=== PATIENT | male | born 1950 | race Caucasian/White ===

== ENCOUNTER 2020-03-25 12:33 | Outpatient (CLI) | payer MEDICARE, MEDICAID | END 2020-03-25 12:34 | disposition critical access hospital (66) | LOC: EMS 12:33 | PROVIDERS: ATTEND Surgery | DX: R06.02 Shortness of breath (principal) | CPT/HCPCS: A0425; A0429 ==

== ENCOUNTER 2020-03-25 13:06 | Inpatient (IN) | payer MEDICARE, MEDICAID ==
--- NOTE | 2020-03-25 13:16 | ED Physician Documentation ---
History of Present Illness - Stated complaint Stated Complaint: SOA - History obtained from History obtained from: Patient, EMS - History of Present Illness Timing: Yesterday Pain level max: 0 Pain level now: 0 - Additonal information Additional information: 69 yo M visiting from out of town presents with increasing B LE edema and shortness of breath over the past 2 days. States ran out of oxygen as well this morning. normally on 2L at home. Initial O2 sats were 80% on room air at the walk in clinic. States 5lbs increased weight over the past week. States takes lasix 80mg daily. H/o CHF, CABG. No chest pain. No fever. No chills. No cough. Patient also reportedly has a history of renal insufficiency, creatinine baseline reportedly 1.9, but recently was elevated to 2.9. Also reportedly had a recent thrombocytopenia, 93. Copies of these labs are unavailable here. Review of Systems Ten Systems: 10 systems reviewed and negative Constitutional: denies: Fever, Chills Throat: denies: Sore throat Respiratory: denies: Cough Skin: denies: Rash Musculoskeletal: denies: Neck pain, Back pain Neurologic: denies: Headache PD PAST MEDICAL HISTORY - Past Medical History Past Medical History: Yes Cardiovascular: Congestive heart failure, Coronary artery disease - Past Surgical History Past Surgical History: Yes Cardiovascular: CABG - Present Medications Home Medications: Ambulatory Orders Medication Instructions Recorded Confirmed Aripiprazole [Abilify] 03/25/20 Aspirin [Aspirin EC] 03/25/20 Atorvastatin [Lipitor] 03/25/20 Furosemide [Lasix] 03/25/20 Gabapentin [Neurontin] 03/25/20 Insulin Lispro [Humalog] 03/25/20 03/25/20 carvediloL [Coreg] 03/25/20 - Allergies Allergies/Adverse Reactions: Allergies Allergy/AdvReac Type Severity Reaction Status Date / Time Penicillins Allergy Unknown Verified 03/25/20 13:21 Sulfa (Sulfonamide Allergy Unknown Verified 03/25/20 13:21 Antibiotics) PD ED PE NORMAL - Vitals Vital signs reviewed: Yes - General General: Alert and oriented X 3, No acute distress - HEENT HEENT: Moist mucous membranes - Neck Neck: Supple, no meningeal sign - Cardiac Cardiac: RRR, Strong equal pulses - Respiratory Respiratory: Other (Increased work of breathing, especially with movement, crackles bilateral) - Abdomen Abdomen: Soft, Non tender, Non distended - Derm Derm: Warm and dry - Extremities Extremities: Other (3+ bilateral lower extremity pitting edema. Mild erythema to the right lower extremity, multiple small scabs.) - Neuro Neuro: Alert and oriented X 3 - Psych Psych: Normal mood, Normal affect Results - Vitals Vitals: Vital Signs - 24 hr 03/25/20 03/25/20 13:12 15:13 Temperature 36.8 C 37.2 C Heart Rate 79 64 Respiratory 18 16 Rate Blood Pressure 139/63 H 146/68 H O2 Saturation 86 L 98 Oxygen O2 Source Nasal cannula Oxygen Flow Rate 3 - EKG (time done) 1320 Rate: Rate (enter#) (76) Rhythm: NSR [place]: Normal Intervals: Prolonged [place], Wide QRS Ischemia: Non specific changes Compare to prior EKG: Old EKG unavailable - Labs Labs: Laboratory Tests 03/25/20 03/25/20 03/25/20 14:08 14:08 14:08 WBC 6.8 RBC 3.03 L Hgb 8.9 L Hct 28.4 L MCV 93.7 MCH 29.4 MCHC 31.3 L RDW 14.5 Plt Count 162 MPV 11.1 Neut # (Auto) 5.1 Lymph # (Auto) 0.8 L Dickson # (Auto) 0.7 Eos # (Auto) 0.1 Baso # (Auto) 0.0 Absolute Nucleated RBC 0.00 Nucleated RBC % 0.0 Sodium 134 L Potassium 4.7 Chloride 106 Carbon Dioxide 19 L Anion Gap 9.0 BUN 73 H Creatinine 3.0 H Estimated GFR (MDRD) 21 L Glucose 163 H Calcium 8.3 L Total Bilirubin 0.7 AST 30 ALT 18 Alkaline Phosphatase 60 Troponin I High Sens B-Natriuretic Peptide 2871 H Total Protein 8.1 Albumin 3.0 L Globulin 5.1 H Albumin/Globulin Ratio 0.6 L Lipase 52 H 03/25/20 14:08 WBC RBC Hgb Hct MCV MCH MCHC RDW Plt Count MPV Neut # (Auto) Lymph # (Auto) Dickson # (Auto) Eos # (Auto) Baso # (Auto) Absolute Nucleated RBC Nucleated RBC % Sodium Potassium Chloride Carbon Dioxide Anion Gap BUN Creatinine Estimated GFR (MDRD) Glucose Calcium Total Bilirubin AST ALT Alkaline Phosphatase Troponin I High Sens 100.2 H* B-Natriuretic Peptide Total Protein Albumin Globulin Albumin/Globulin Ratio Lipase - Rads (name of study) Chest x-ray Radiology: Prelim report reviewed, EMP read contemporaneously, See rad report PD MEDICAL DECISION MAKING - ED course Complexity details: reviewed results, re-evaluated patient, considered differential, d/w patient, d/w senior solutions workflow consultant ED course: 69-year-old male presents to the emergency department with what appears to be worsening congestive heart failure. His normal oxygen requirement is 2 L, he is on 3 to 4 L at rest in the emergency department. He was given IV Lasix. Has chronic renal insufficiency. Mildly elevated high-sensitivity troponin, but likely secondary to his CHF exacerbation and pulmonary edema rather than true ACS. Discussed the case with Dr. Tineo, hospitalist who accepts This document was made in part using voice recognition software. While efforts are made to proofread this document, sound alike and grammatical errors may occur. Departure - Departure Disposition: 66 [facility] DC/Xfer Clinical Impression: Hypoxia Pulmonary edema Qualifiers: Chronicity: acute Qualified Code(s): J81.0 - Acute pulmonary edema Renal failure Qualifiers: Renal failure chronicity: acute on chronic Acute renal failure type: unspecified Chronic kidney disease stage: unspecified stage Qualified Code(s): N17.9 - Acute kidney failure, unspecified; N18.9 - Chronic kidney disease, unspecified Anemia Qualifiers: Anemia type: unspecified type Qualified Code(s): D64.9 - Anemia, unspecified CHF exacerbation Qualifiers: Heart failure type: unspecified Qualified Code(s): I50.9 - Heart failure, unspecified Condition: Stable
[2020-03-25] MEDS ORDERED: FUROSEMIDE 40 MG/4 ML VIAL IVP STA (13:27)
--- NOTE | 2020-03-25 13:37 | XRAY Report ---
PROCEDURE: Chest 1 View X-Ray INDICATIONS: Chest Pain TECHNIQUE: One view of the chest was acquired. COMPARISON: None FINDINGS: Surgical changes and devices: Median sternotomy wires and surgical clips are seen.. Lungs and pleura: No pleural effusions or pneumothorax. Extensive hazy opacities in bilateral mid to lower lung turner are seen concerning for pulmonary edema. Underlying infiltrates cannot be excluded . Mediastinum: Mediastinal contours appear normal. Heart size is enlarged. Bones and chest wall: No suspicious bony lesions. Overlying soft tissues appear unremarkable. IMPRESSION: Suggestion of CHF, cannot rule out underlying bilateral pulmonary infiltrates. No gross pneumothorax. Reviewed by: Tim Clay MD on 03/25/2020 1:35 PM PST Approved by: Tim Clay MD on 03/25/2020 1:35 PM PST Station ID: [id number]
[2020-03-25 14:37] LABS: ALBUMIN/GLOBULIN RATIO 0.6 (1.0-2.2); BILIRUBIN,TOTAL 0.7 mg/dL (0.2-1.0); CALCIUM 8.3 mg/dL (8.5-10.3); TOTAL PROTEIN 8.1 g/dL (6.7-8.2)
[2020-03-25 14:59] LABS: BASOPHILS % (AUTO) 0.4 %; EOSINOPHILS # (AUTO) 0.1 10^3/uL (0.0-0.7); EOSINOPHILS % (AUTO) 1.9 %; HGB - HEMOGLOBIN 8.9 g/dL (14.0-18.0); LYMPHOCYTES # (AUTO) 0.8 10^3/uL (1.5-3.5); LYMPHOCYTES % (AUTO) 11.7 %; MEAN CORPUSCULAR HEMOGLOBIN 29.4 pg (27.0-31.0); MEAN CORPUSCULAR HGB CONC 31.3 g/dL (32.0-36.0); MEAN CORPUSCULAR VOLUME 93.7 fL (80.0-94.0); MEAN PLATELET VOLUME 11.1 fL (7.4-11.4); MONOCYTES # (AUTO) 0.7 10^3/uL (0.0-1.0); MONOCYTES % (AUTO) 9.9 %; NEUTROPHILS # (AUTO) 5.1 10^3/uL (1.5-6.6); NEUTROPHILS % (AUTO) 75.5 %; PLT - PLATELET COUNT 162 10^3/uL (130-450); RED BLOOD COUNT 3.03 10^6/uL (4.70-6.10); RED CELL DISTRIBUTION WIDTH 14.5 % (12.0-15.0); WHITE BLOOD COUNT 6.8 x10^3/uL (4.8-10.8)
[2020-03-25 16:34] LABS: C. PNEUMONIAE- RESP PCR PANEL NOT DETECTED
[2020-03-25] MEDS ORDERED: ONDANSETRON 4 MG/2 ML VIAL IVP PRN (16:57)
[2020-03-25] MEDS ORDERED: ACETAMINOPHEN 325 MG TABLET PO PRN (16:57)
[2020-03-25] MEDS ORDERED: SODIUM CHLORIDE FLUSH 0.9% 10 ML SYRINGE IVP PRN (16:57)
--- NOTE | 2020-03-25 17:15 | HISTORY & PHYSICAL EXAMINATION ---
Chief Complaint - Chief Complaint Chief Complaint: shortness of breath History of Present Illness - Admitted From Admitted From:: ER - History Obtained From Records Reviewed: [facility] History obtained from: Pt - History of Present Illness HPI Comment/Other: This is a 69-yrs old male with a PMH significant for CHF, CAD, Diabetes, CKD who present ER complain of shortness of breath, increasing bilateral lower extremity edema. pt report he came from [facility] and in the holiday to visit his sister in [facility]. pt report he usually take 3 liter of O2 at home. In the recently two days, he feel more shortness of breath, increase of his bilateral leg edema. pt also report his weight increased in the recent couple of weeks. pt report he did not know he has kidney problem before. pt denies chest pain, fever, chill, nausea, vomiting, abdominal pain. Chest x-ray is suggestion of CHF. Lab test show pt has creatinine 3.0, BUN 73, BNP is 2871. pt also has elevated troponin at 100, repeated his Troponin is 111. EKG has sinus rhythm without ST segment variation. In ER, pt is afebile, pt has 86% sat on room air, then his O2 sat increased to 98% on 3 liter of O2. Discussed the care goal with the patient, patient request full code History - Past Medical History Cardiovascular: reports: Congestive heart failure, Coronary artery disease - Past Surgical History Cardiovascular: reports: CABG - Family & Social History Family History: Mother: , Father: Family History Comment/Other: Patient reported his father has diabetic and heavy smoker and at age 75. His mother also is a heavy smoke and at age 61 Social History Notes: Patient reported he never smoke, no alcohol or drug issue. Meds/Allgy - Home Medications Home Medications: Ambulatory Orders Medication Instructions Recorded Confirmed Aripiprazole [Abilify] 03/25/20 Aspirin [Aspirin EC] 03/25/20 Atorvastatin [Lipitor] 03/25/20 Furosemide [Lasix] 03/25/20 Gabapentin [Neurontin] 03/25/20 Insulin Lispro [Humalog] 03/25/20 03/25/20 carvediloL [Coreg] 03/25/20 - Allergies Allergies/Adverse Reactions: Allergies Allergy/AdvReac Type Severity Reaction Status Date / Time Penicillins Allergy Unknown Verified 03/25/20 13:21 Sulfa (Sulfonamide Allergy Unknown Verified 03/25/20 13:21 Antibiotics) Review of Systems - Constitutional Constitutional: denies: Fatigue, Fever, Chills, Weakness, Poor appetite - Eyes Eyes: denies: Pain, Blurred vision, Field loss, Vision loss - Ears, Nose & Throat Ears, Nose & Throat: denies: Ear pain, Vertigo, Nosebleeds, Bleeding gums - Cardiovascular Cariovascular: reports: Edema, Exertional dyspnea, Decr. exercise tolerance. denies: Irregular heart rate, Palpitations, Chest pain, Lightheadedness, Syncope - Respiratory Respiratory: reports: SOB with exertion. denies: Cough, Sputum production, Wheezing, Hemoptysis, Orthopnea, SOB at rest - Gastrointestinal Gastrointestinal: denies: Abdominal pain, Constipation, Diarrhea, Rectal bleeding, Black stools, Bloody stools, Nausea, Vomiting, John blood emesis, Coffee grounds emesis - Genitourinary Genitourinary: denies: Dysuria, Urgency - Musculoskeletal Musculoskeletal: denies: Muscle pain, Muscle aches, Limited range of motion, Muscle weakness - Integumentary Integumentary: denies: Rash, Lesions - Neurological Neurological: denies: General weakness, Focal weakness, Headache, Dizziness, Nu mbness, Abnormal gait, Seizures, Incoordination, Slurred speech - Psychiatric Psychiatric: denies: Depression, Suicidal, Delusions, Hallucinations - Endocrine Endocrine: denies: Polyuria, Polydypsia - Hematologic/Lymphatic Hematologic/Lymphatic: denies: Anemia, Blood clots Exam - Vital Signs Vital Signs: Vital Signs x48h Temp Pulse Resp BP Pulse Ox 03/25/20 16:46 64 21 153/76 H 97 03/25/20 15:13 37.2 C 64 16 146/68 H 98 03/25/20 13:12 36.8 C 79 18 139/63 H 86 L - Physical Exam General Appearance: positive: No acute distress, Alert. negative: Lethargic Eyes Bilateral: positive: Normal inspection, PERRL, No lid inflammation ENT: positive: ENT inspection nml, No signs of dehydration. negative: Purulent nasal drainage Neck: positive: Nml inspection, Thyroid nml, Trachea midline. negative: Thyromegaly, Tracheal deviation Respiratory: positive: Chest non-tender, No respiratory distress. negative: Wheezes, Rhonchi Cardiovascular: positive: Regular rate & rhythm, No murmur. negative: Tachycardia, Bradycardia, Systolic murmur Peripheral Pulses: positive: 2+ Abdomen: positive: Non-tender, Nml bowel sounds, No distention. negative: Tenderness, Guarding Back: positive: Nml inspection Skin: positive: Color nml, No rash, Warm, Dry. negative: Cyanosis, Diaphoresis, Pallor Extremities: positive: Non-tender, Nml appearance. negative: Calf tenderness Neurologic/Psychiatric: positive: Oriented x3, Motor nml, Sensation nml. negati ve: Weakness, Sensory loss, Facial droop, Slurred/abnml speech, Depressed mood/affect Sepsis Event Note (H) - Evaluation Current Stage of Sepsis: Ruled out Conclusion/Plan - Problem List (1) CHF exacerbation Conclusion/Plan: Patient has history of CHF, BNP is close to 3000 now, pt present shortness of breath, and Bilateral lower extremity edema, Chest chest x-ray show pulmonary congestion, suggestion acute on chronic CHF. order ECHO, IV of Lasix, tele monitor, lab monitor BNP, supplement of O2 as needed, continue home meds Coreg, daily weight, and low sodium diet. Qualifiers: Heart failure type: unspecified Qualified Code(s): I50.9 - Heart failure, unspecified (2) Elevated troponin Conclusion/Plan: pt denies any chest pain, repeated troponin is flat around 110. EKG reveals sinus rhythm without ST segment variation. it is more likely derived from combination of pt's worsening kidney function and demand cardiac stress from fluid overload. continue monitor Troponin, resume home Aspirin, and statin, tele and vital monitor, resume home Coreg, check ECHO. (3) Shortness of breath Conclusion/Plan: Patient reported shortness of breathing, patient had 86% of sats on room air. Patient usually take 2 L oxygen in the home. Patient has a history of CHF. Patient BNP is close to 3000, She also present bilateral lower extremity edema, Chest x-ray also suggestion CHF. Patient's SOB is likely caused by fluids overloaded secondary to pt's CHF. Patient was already given 40 mg intravenous Lasix in the ER Plan: continue IV of Lasix, monitor BNP, and BMP lab monitor, supplement of O2 as needed, adjust Lasix dosage as clinic presentation as needed. order ECHO (4) Bilateral lower extremity edema Conclusion/Plan: pt present Bilateral mild to moderate lower extremity edema acute on chronic. 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 It is likely secondarily to Fluids overloaded and worsening renal function. Patient deny pain, tenderness or erythema on the leg. There is some scratch in the right lower extremity because of his skin itchy. Plan: IV of lasix, PT/OT, lab monitor. (5) LAW (acute kidney injury) Conclusion/Plan: Patient reported usually creatinine is 1.9, today his creatinine 3.0. it is more likely secondary to worsening cardiac output and poor perfusion from acute on chronic CHF. we will continue Lasix diuretic, and lab monitor kidney function. (6) Diabetes Conclusion/Plan: Patient has history of diabetic, we will use sliding scale, check glucose level, had hypoglycemia protocol, and check A1C (7) Anemia Conclusion/Plan: pt has HGB 8.9 today. pt has hx of chronic CKD and CHF which could contribute to his anemia, will have anemia study, lab monitor with CBC. - Lab Results Fish Bones: 03/25/20 14:08 03/25/20 14:08 Core Measures - Anticipated LOS I expect patient to be DC'd or transferred within 96 hours.: Yes - DVT/VTE - Prophylaxis VTE/DVT Device ordered at admit?: Yes VTE/DVT Prophylaxis med ordered at admit?: Yes
[2020-03-25] MEDS: SODIUM CHLORIDE FLUSH 0.9% 10 ML SYRINGE IVP SCH (17:26)
[2020-03-25] MEDS ORDERED: LOSARTAN 50 MG TABLET PO SCH (18:39)
[2020-03-25] MEDS: carvediloL 3.125 MG TABLET PO SCH ×2 (18:47→21:00)
[2020-03-25 19:30] LABS: % IRON SATURATION 3 % (20-50); IRON 10 ug/dL (45-182); TOTAL IRON BINDING CAPACITY 316 ug/dL (250-450); TRANSFERRIN 226 mg/dL (180-329)
[2020-03-25 19:37] LABS: FERRITIN 273.4 ng/mL (23.9-336.2)
[2020-03-25] MEDS: HEPARIN 5,000 UNIT/ML VIAL SUBQ SCH (20:58)
[2020-03-25] MEDS ORDERED: FAMOTIDINE 20 MG TABLET PO SCH (21:00)
[2020-03-25] MEDS ORDERED: carvediloL 3.125 MG TABLET PO SCH (21:00)
[2020-03-25] MEDS ORDERED: ATORVASTATIN 40 MG TABLET PO SCH (21:00)
[2020-03-25] MEDS: GABAPENTIN 300 MG CAPSULE PO SCH (21:00)
[2020-03-25] MEDS: INSULIN ASPART 300 UNIT/3 ML PEN SUBQ SCH (21:03)
[2020-03-25 22:37] LABS: ABSOLUTE RETICS # AUTO 0.046 10^6/uL (0.020-0.110); RED BLOOD COUNT 2.79 10^6/uL (4.70-6.10)
[2020-03-26] MEDS: SODIUM CHLORIDE FLUSH 0.9% 10 ML SYRINGE IVP SCH ×3 (00:24→18:08)
[2020-03-26 05:24] LABS: BASOPHILS % (AUTO) 0.4 %; EOSINOPHILS # (AUTO) 0.4 10^3/uL (0.0-0.7); EOSINOPHILS % (AUTO) 7.5 %; HGB - HEMOGLOBIN 7.7 g/dL (14.0-18.0); LYMPHOCYTES # (AUTO) 1.2 10^3/uL (1.5-3.5); LYMPHOCYTES % (AUTO) 20.7 %; MEAN CORPUSCULAR HEMOGLOBIN 28.8 pg (27.0-31.0); MEAN CORPUSCULAR HGB CONC 30.4 g/dL (32.0-36.0); MEAN CORPUSCULAR VOLUME 94.8 fL (80.0-94.0); MEAN PLATELET VOLUME 10.8 fL (7.4-11.4); MONOCYTES # (AUTO) 0.5 10^3/uL (0.0-1.0); MONOCYTES % (AUTO) 9.5 %; NEUTROPHILS # (AUTO) 3.5 10^3/uL (1.5-6.6); NEUTROPHILS % (AUTO) 61.5 %; PLT - PLATELET COUNT 142 10^3/uL (130-450); RED BLOOD COUNT 2.67 10^6/uL (4.70-6.10); RED CELL DISTRIBUTION WIDTH 14.6 % (12.0-15.0); WHITE BLOOD COUNT 5.7 x10^3/uL (4.8-10.8)
[2020-03-26 05:37] LABS: CALCIUM 8.2 mg/dL (8.5-10.3); CREATININE 3.1 mg/dL (0.6-1.2); MAGNESIUM 1.5 mg/dL (1.7-2.8); PHOSPHORUS 4.2 mg/dL (2.5-4.6)
[2020-03-26] MEDS ORDERED: FUROSEMIDE 40 MG/4 ML VIAL IVP SCH ×2 (06:00→09:00)
[2020-03-26] MEDS ORDERED: MAGNESIUM SULFATE 2 GRAM 2 GM/50 ML BAG IV ONE (07:11)
[2020-03-26 07:40] LABS: HEMOGLOBIN A1c% 8.4 % (4.27-6.07)
[2020-03-26] MEDS: INSULIN ASPART 300 UNIT/3 ML PEN SUBQ SCH ×4 (08:21→20:40)
[2020-03-26] MEDS ORDERED: FAMOTIDINE 20 MG TABLET PO SCH (09:00)
[2020-03-26] MEDS ORDERED: ASPIRIN CHEW 81 MG TABLET PO SCH (09:00)
[2020-03-26] MEDS: carvediloL 3.125 MG TABLET PO SCH ×2 (09:01→20:42)
[2020-03-26] MEDS: HEPARIN 5,000 UNIT/ML VIAL SUBQ SCH ×2 (09:22→20:40)
--- NOTE | 2020-03-26 09:25 | PROVIDER PROGRESS NOTE ---
Subjective - Prog Note Date Prog Note Date: 03/26/20 - Subjective Subjective: He reports feeling improved compared to yesterday but still feels short of breath at times. He denies any chest pain. He reports his lower extremity edema is slightly improved. He does not believe he has ever required a blood transfusion before. He denies any blood in his stool or evidence of bleeding. Current Medications - Current Medications Current Medications: Active Medications Acetaminophen (Tylenol) 650 mg PO Q4HR PRN PRN Reason: Pain 1 to 4 Aspirin ([facility] Hemanth Aspirin) 81 mg PO DAILY [facility] Last Admin: 03/26/20 09:00 Dose: 81 mg Documented by: Atorvastatin Calcium (Lipitor) 20 mg PO QPM [facility] Last Admin: 03/25/20 21:00 Dose: 20 mg Documented by: Carvedilol (Coreg) 3.125 mg PO BID [facility] Last Admin: 03/26/20 09:01 Dose: 3.125 mg Documented by: Famotidine (Pepcid) 20 mg PO DAILY [facility] Last Admin: 03/26/20 09:01 Dose: 20 mg Documented by: Furosemide (Lasix Inj 40 Mg Vial) 40 mg IVP BIDDIURETIC [facility] Gabapentin (Neurontin) 300 mg PO QPM [facility] Last Admin: 03/25/20 21:00 Dose: 300 mg Documented by: Heparin Sodium (Porcine) () 5,000 unit SUBQ BID [facility] Last Admin: 03/25/20 20:58 Dose: 5,000 unit Documented by: Insulin Aspart (Novolog) 1 - 9 unit SUBQ 0800,1200,1700,2100 [facility]; Protocol Last Admin: 03/26/20 08:21 Dose: Not Given Documented by: Ondansetron HCl (Zofran Inj) 4 mg IVP Q6HR PRN PRN Reason: Nausea / Vomiting Sodium Chloride (Normal Saline Flush 0.9%) 10 ml IVP PRN PRN PRN Reason: NEEDED PER PROVIDER ORDERS Sodium Chloride (Normal Saline Flush 0.9%) 10 ml IVP 0100,0900,1700 [facility] Last Admin: 03/26/20 00:24 Dose: 10 ml Documented by: Aripiprazole [Abilify] 03/25/20 Aspirin [Aspirin EC] 03/25/20 Atorvastatin [Lipitor] 03/25/20 Furosemide [Lasix] 40 mg PO BIDDIURETIC 03/25/20 Gabapentin [Neurontin] 03/25/20 Insulin Lispro [Humalog] 03/25/20 carvediloL [Coreg] 03/25/20 amLODIPine [Norvasc] 5 mg PO DAILY 03/26/20 Objective - Vital Signs/Intake & Output Reviewed Vital Signs: Yes Vital Signs: Vital Signs x48h Temp Pulse Pulse Resp BP Pulse Ox 03/26/20 08:34 37.2 C 61 20 149/71 H 97 03/26/20 05:04 37.2 C 58 L 22 96 03/26/20 03:35 37.2 C 58 L 22 122/57 L 96 Intake & Output: Intake & Output 03/23/20 03/24/20 03/25/20 03/26/20 23:59 23:59 23:59 23:59 Intake Total 400 840 Output Total 750 325 Balance -350 515 - Objective General Appearance: positive: Alert, Mild distress Eyes Bilateral: positive: Other (Left eye anopia.) ENT: positive: ENT inspection nml, Other (Nasal cannula in place.) Neck: positive: Nml inspection Respiratory: positive: Rales, Other (He is nondistressed but still appears quite tachypneic at rest. He is able to speak in short sentences but does catch his breath at times.). negative: Wheezes Cardiovascular: positive: Regular rate & rhythm. negative: Tachycardia, Systolic murmur Abdomen: positive: Non-tender, No distention, Other (Umbilical hernia noted.). negative: Tenderness Skin: positive: Warm, Dry Extremities: positive: Pedal edema (He has about +2 pitting edema in bilateral lower extremities.) Neurologic/Psychiatric: negative: Disoriented to person, Disoriented to place - Lab Results Fish Bones: 03/26/20 05:16 03/26/20 05:16 Other Labs: Lab Results x24hrs 03/26/20 03/26/20 03/26/20 Range/Units 07:38 07:27 05:16 WBC (4.8-10.8) x10^3/uL RBC (4.70-6.10) 10^6/uL Hgb (14.0-18.0) g/dL Hct (42.0-52.0) % MCV (80.0-94.0) fL MCH (27.0-31.0) pg MCHC (32.0-36.0) g/dL RDW (12.0-15.0) % Plt Count (130-450) 10^3/uL MPV (7.4-11.4) fL Reticulocyte % (Auto) (0.5-2.3) % Neut # (Auto) (1.5-6.6) 10^3/uL Lymph # (Auto) (1.5-3.5) 10^3/uL [place] # (Auto) (0.0-1.0) 10^3/uL Eos # (Auto) (0.0-0.7) 10^3/uL Baso # (Auto) (0.0-0.1) 10^3/uL Absolute Nucleated RBC x10^3/uL Nucleated RBC % /100WBC Absolute Retic (0.020-0.110) 10^6/uL Sodium (135-145) mmol/L Potassium (3.5-5.0) mmol/L Chloride (101-111) mmol/L Carbon Dioxide (21-32) mmol/L Anion Gap (6-13) BUN (6-20) mg/dL Creatinine (0.6-1.2) mg/dL Estimated GFR (MDRD) (>89) Glucose (70-100) mg/dL POC Whole Bld Glucose 110 H (70 - 100) mg/dL Estimat Average Glucose (70-100) mg/dL Hemoglobin A1c % (4.27-6.07) % Calcium (8.5-10.3) mg/dL Phosphorus (2.5-4.6) mg/dL Magnesium (1.7-2.8) mg/dL Iron (45-182) ug/dL TIBC (250-450) ug/dL % Saturation (20-50) % Transferrin (180-329) mg/dL Ferritin (23.9-336.2) ng/mL Total Bilirubin (0.2-1.0) mg/dL AST (10-42) IU/L ALT (10-60) IU/L Alkaline Phosphatase (42-121) IU/L Lactate Dehydrogenase (91-225) IU/L Troponin I High Sens (2.3-19.7) ng/L B-Natriuretic Peptide (5-100) pg/mL Total Protein (6.7-8.2) g/dL Albumin (3.2-5.5) g/dL Globulin (2.1-4.2) g/dL Albumin/Globulin Ratio (1.0-2.2) Lipase (22-51) U/L Vitamin B12 (180-914) pg/mL Nasal Adenovirus (PCR) Nasal B. parapertussis DNA (PCR) Nasal Coronavir 229E PCR Nasal Coronavir HKU1 PCR Nasal Coronavir NL63 PCR Nasal Coronavir OC43 PCR Nasal Enterovir/Rhinovir PCR Nasal Influenza B PCR Nasal Influenza A PCR Nasal Parainfluen 1 PCR Nasal Parainfluen 2 PCR Nasal Parainfluen 3 PCR Nasal Parainfluen 4 PCR Nasal RSV (PCR) Nasal B.pertussis DNA PCR Nasal C.pneumoniae (PCR) [place] Human Metapneumo PCR Nasal M.pneumoniae (PCR) Nasal SARS-CoV-2 (PCR) Blood Type A POSITIVE Blood Type Recheck A POSITIVE Antibody Screen NEGATIVE Crossmatch IS Only See Detail 03/26/20 03/26/20 03/26/20 Range/Units 05:16 05:16 05:16 WBC (4.8-10.8) x10^3/uL RBC (4.70-6.10) 10^6/uL Hgb (14.0-18.0) g/dL Hct (42.0-52.0) % MCV (80.0-94.0) fL MCH (27.0-31.0) pg MCHC (32.0-36.0) g/dL RDW (12.0-15.0) % Plt Count (130-450) 10^3/uL MPV (7.4-11.4) fL Reticulocyte % (Auto) (0.5-2.3) % Neut # (Auto) (1.5-6.6) 10^3/uL Lymph # (Auto) (1.5-3.5) 10^3/uL [place] # (Auto) (0.0-1.0) 10^3/uL Eos # (Auto) (0.0-0.7) 10^3/uL Baso # (Auto) (0.0-0.1) 10^3/uL Absolute Nucleated RBC x10^3/uL Nucleated RBC % /100WBC Absolute Retic (0.020-0.110) 10^6/uL Sodium 134 L (135-145) mmol/L Potassium 4.5 (3.5-5.0) mmol/L Chloride 104 (101-111) mmol/L Carbon Dioxide 20 L (21-32) mmol/L Anion Gap 10.0 (6-13) BUN 70 H (6-20) mg/dL Creatinine 3.1 H (0.6-1.2) mg/dL Estimated GFR (MDRD) 20 L (>89) Glucose 117 H (70-100) mg/dL POC Whole Bld Glucose (70 - 100) mg/dL Estimat Average Glucose 194 H (70-100) mg/dL Hemoglobin A1c % 8.4 H (4.27-6.07) % Calcium 8.2 L (8.5-10.3) mg/dL Phosphorus 4.2 (2.5-4.6) mg/dL Magnesium 1.5 L (1.7-2.8) mg/dL Iron (45-182) ug/dL TIBC (250-450) ug/dL % Saturation (20-50) % Transferrin (180-329) mg/dL Ferritin (23.9-336.2) ng/mL Total Bilirubin (0.2-1.0) mg/dL AST (10-42) IU/L ALT (10-60) IU/L Alkaline Phosphatase (42-121) IU/L Lactate Dehydrogenase (91-225) IU/L Troponin I High Sens (2.3-19.7) ng/L B-Natriuretic Peptide 1944 H (5-100) pg/mL Total Protein (6.7-8.2) g/dL Albumin (3.2-5.5) g/dL Globulin (2.1-4.2) g/dL Albumin/Globulin Ratio (1.0-2.2) Lipase (22-51) U/L Vitamin B12 (180-914) pg/mL Nasal Adenovirus (PCR) Nasal B. parapertussis DNA (PCR) Nasal Coronavir 229E PCR Nasal Coronavir HKU1 PCR Nasal Coronavir NL63 PCR Nasal Coronavir OC43 PCR Nasal Enterovir/Rhinovir PCR Nasal Influenza B PCR Nasal Influenza A PCR Nasal Parainfluen 1 PCR Nasal Parainfluen 2 PCR Nasal Parainfluen 3 PCR Nasal Parainfluen 4 PCR Nasal RSV (PCR) Nasal B.pertussis DNA PCR Nasal C.pneumoniae (PCR) [place] Human Metapneumo PCR Nasal M.pneumoniae (PCR) Nasal SARS-CoV-2 (PCR) Blood Type Blood Type Recheck Antibody Screen Crossmatch IS Only 03/26/20 03/25/20 03/25/20 Range/Units 05:16 22:26 22:26 WBC 5.7 (4.8-10.8) x10^3/uL RBC 2.67 L 2.79 L (4.70-6.10) 10^6/uL Hgb 7.7 L (14.0-18.0) g/dL Hct 25.3 L (42.0-52.0) % MCV 94.8 H (80.0-94.0) fL MCH 28.8 (27.0-31.0) pg MCHC 30.4 L (32.0-36.0) g/dL RDW 14.6 (12.0-15.0) % Plt Count 142 (130-450) 10^3/uL MPV 10.8 (7.4-11.4) fL Reticulocyte % (Auto) 1.64 (0.5-2.3) % Neut # (Auto) 3.5 (1.5-6.6) 10^3/uL Lymph # (Auto) 1.2 L (1.5-3.5) 10^3/uL [place] # (Auto) 0.5 (0.0-1.0) 10^3/uL Eos # (Auto) 0.4 (0.0-0.7) 10^3/uL Baso # (Auto) 0.0 (0.0-0.1) 10^3/uL Absolute Nucleated RBC 0.00 x10^3/uL Nucleated RBC % 0.0 /100WBC Absolute Retic 0.046 (0.020-0.110) 10^6/uL Sodium (135-145) mmol/L Potassium (3.5-5.0) mmol/L Chloride (101-111) mmol/L Carbon Dioxide (21-32) mmol/L Anion Gap (6-13) BUN (6-20) mg/dL Creatinine (0.6-1.2) mg/dL Estimated GFR (MDRD) (>89) Glucose (70-100) mg/dL POC Whole Bld Glucose (70 - 100) mg/dL Estimat Average Glucose (70-100) mg/dL Hemoglobin A1c % (4.27-6.07) % Calcium (8.5-10.3) mg/dL Phosphorus (2.5-4.6) mg/dL Magnesium (1.7-2.8) mg/dL Iron (45-182) ug/dL TIBC (250-450) ug/dL % Saturation (20-50) % Transferrin (180-329) mg/dL Ferritin (23.9-336.2) ng/mL Total Bilirubin (0.2-1.0) mg/dL AST (10-42) IU/L ALT (10-60) IU/L Alkaline Phosphatase (42-121) IU/L Lactate Dehydrogenase (91-225) IU/L Troponin I High Sens 105.1 H* (2.3-19.7) ng/L B-Natriuretic Peptide (5-100) pg/mL Total Protein (6.7-8.2) g/dL Albumin (3.2-5.5) g/dL Globulin (2.1-4.2) g/dL Albumin/Globulin Ratio (1.0-2.2) Lipase (22-51) U/L Vitamin B12 (180-914) pg/mL Nasal Adenovirus (PCR) Nasal B. parapertussis DNA (PCR) Nasal Coronavir 229E PCR Nasal Coronavir HKU1 PCR Nasal Coronavir NL63 PCR Nasal Coronavir OC43 PCR Nasal Enterovir/Rhinovir PCR Nasal Influenza B PCR Nasal Influenza A PCR Nasal Parainfluen 1 PCR Nasal Parainfluen 2 PCR Nasal Parainfluen 3 PCR Nasal Parainfluen 4 PCR Nasal RSV (PCR) Nasal B.pertussis DNA PCR Nasal C.pneumoniae (PCR) [place] Human Metapneumo PCR Nasal M.pneumoniae (PCR) Nasal SARS-CoV-2 (PCR) Blood Type Blood Type Recheck Antibody Screen Crossmatch IS Only 03/25/20 03/25/20 03/25/20 Range/Units 20:56 18:07 16:22 WBC (4.8-10.8) x10^3/uL RBC (4.70-6.10) 10^6/uL Hgb (14.0-18.0) g/dL Hct (42.0-52.0) % MCV (80.0-94.0) fL MCH (27.0-31.0) pg MCHC (32.0-36.0) g/dL RDW (12.0-15.0) % Plt Count (130-450) 10^3/uL MPV (7.4-11.4) fL Reticulocyte % (Auto) (0.5-2.3) % Neut # (Auto) (1.5-6.6) 10^3/uL Lymph # (Auto) (1.5-3.5) 10^3/uL [place] # (Auto) (0.0-1.0) 10^3/uL Eos # (Auto) (0.0-0.7) 10^3/uL Baso # (Auto) (0.0-0.1) 10^3/uL Absolute Nucleated RBC x10^3/uL Nucleated RBC % /100WBC Absolute Retic (0.020-0.110) 10^6/uL Sodium (135-145) mmol/L Potassium (3.5-5.0) mmol/L Chloride (101-111) mmol/L Carbon Dioxide (21-32) mmol/L Anion Gap (6-13) BUN (6-20) mg/dL Creatinine (0.6-1.2) mg/dL Estimated GFR (MDRD) (>89) Glucose (70-100) mg/dL POC Whole Bld Glucose 172 H 120 H (70 - 100) mg/dL Estimat Average Glucose (70-100) mg/dL Hemoglobin A1c % (4.27-6.07) % Calcium (8.5-10.3) mg/dL Phosphorus (2.5-4.6) mg/dL Magnesium (1.7-2.8) mg/dL Iron (45-182) ug/dL TIBC (250-450) ug/dL % Saturation (20-50) % Transferrin (180-329) mg/dL Ferritin (23.9-336.2) ng/mL Total Bilirubin (0.2-1.0) mg/dL AST (10-42) IU/L ALT (10-60) IU/L Alkaline Phosphatase (42-121) IU/L Lactate Dehydrogenase 263 H (91-225) IU/L Troponin I High Sens (2.3-19.7) ng/L B-Natriuretic Peptide (5-100) pg/mL Total Protein (6.7-8.2) g/dL Albumin (3.2-5.5) g/dL Globulin (2.1-4.2) g/dL Albumin/Globulin Ratio (1.0-2.2) Lipase (22-51) U/L Vitamin B12 (180-914) pg/mL Nasal Adenovirus (PCR) Nasal B. parapertussis DNA (PCR) Nasal Coronavir 229E PCR Nasal Coronavir HKU1 PCR Nasal Coronavir NL63 PCR Nasal Coronavir OC43 PCR Nasal Enterovir/Rhinovir PCR Nasal Influenza B PCR Nasal Influenza A PCR Nasal Parainfluen 1 PCR Nasal Parainfluen 2 PCR Nasal Parainfluen 3 PCR Nasal Parainfluen 4 PCR Nasal RSV (PCR) Nasal B.pertussis DNA PCR Nasal C.pneumoniae (PCR) [place] Human Metapneumo PCR Nasal M.pneumoniae (PCR) Nasal SARS-CoV-2 (PCR) Blood Type Blood Type Recheck Antibody Screen Crossmatch IS Only 03/25/20 03/25/20 03/25/20 Range/Units 16:22 16:22 16:22 WBC (4.8-10.8) x10^3/uL RBC (4.70-6.10) 10^6/uL Hgb (14.0-18.0) g/dL Hct (42.0-52.0) % MCV (80.0-94.0) fL MCH (27.0-31.0) pg MCHC (32.0-36.0) g/dL RDW (12.0-15.0) % Plt Count (130-450) 10^3/uL MPV (7.4-11.4) fL Reticulocyte % (Auto) (0.5-2.3) % Neut # (Auto) (1.5-6.6) 10^3/uL Lymph # (Auto) (1.5-3.5) 10^3/uL [place] # (Auto) (0.0-1.0) 10^3/uL Eos # (Auto) (0.0-0.7) 10^3/uL Baso # (Auto) (0.0-0.1) 10^3/uL Absolute Nucleated RBC x10^3/uL Nucleated RBC % /100WBC Absolute Retic (0.020-0.110) 10^6/uL Sodium (135-145) mmol/L Potassium (3.5-5.0) mmol/L Chloride (101-111) mmol/L Carbon Dioxide (21-32) mmol/L Anion Gap (6-13) BUN (6-20) mg/dL Creatinine (0.6-1.2) mg/dL Estimated GFR (MDRD) (>89) Glucose (70-100) mg/dL POC Whole Bld Glucose (70 - 100) mg/dL Estimat Average Glucose (70-100) mg/dL Hemoglobin A1c % (4.27-6.07) % Calcium (8.5-10.3) mg/dL Phosphorus (2.5-4.6) mg/dL Magnesium (1.7-2.8) mg/dL Iron 10 L (45-182) ug/dL TIBC 316 (250-450) ug/dL % Saturation 3 L (20-50) % Transferrin 226 (180-329) mg/dL Ferritin 273.4 (23.9-336.2) ng/mL Total Bilirubin (0.2-1.0) mg/dL AST (10-42) IU/L ALT (10-60) IU/L Alkaline Phosphatase (42-121) IU/L Lactate Dehydrogenase (91-225) IU/L Troponin I High Sens 111.5 H* (2.3-19.7) ng/L B-Natriuretic Peptide (5-100) pg/mL Total Protein (6.7-8.2) g/dL Albumin (3.2-5.5) g/dL Globulin (2.1-4.2) g/dL Albumin/Globulin Ratio (1.0-2.2) Lipase (22-51) U/L Vitamin B12 357 (180-914) pg/mL Nasal Adenovirus (PCR) Nasal B. parapertussis DNA (PCR) Nasal Coronavir 229E PCR Nasal Coronavir HKU1 PCR Nasal Coronavir NL63 PCR Nasal Coronavir OC43 PCR Nasal Enterovir/Rhinovir PCR Nasal Influenza B PCR Nasal Influenza A PCR Nasal Parainfluen 1 PCR Nasal Parainfluen 2 PCR Nasal Parainfluen 3 PCR Nasal Parainfluen 4 PCR Nasal RSV (PCR) Nasal B.pertussis DNA PCR Nasal C.pneumoniae (PCR) [place] Human Metapneumo PCR Nasal M.pneumoniae (PCR) Nasal SARS-CoV-2 (PCR) Blood Type Blood Type Recheck Antibody Screen Crossmatch IS Only 03/25/20 03/25/20 03/25/20 Range/Units 15:38 14:08 14:08 WBC (4.8-10.8) x10^3/uL RBC (4.70-6.10) 10^6/uL Hgb (14.0-18.0) g/dL Hct (42.0-52.0) % MCV (80.0-94.0) fL MCH (27.0-31.0) pg MCHC (32.0-36.0) g/dL RDW (12.0-15.0) % Plt Count (130-450) 10^3/uL MPV (7.4-11.4) fL Reticulocyte % (Auto) (0.5-2.3) % Neut # (Auto) (1.5-6.6) 10^3/uL Lymph # (Auto) (1.5-3.5) 10^3/uL [place] # (Auto) (0.0-1.0) 10^3/uL Eos # (Auto) (0.0-0.7) 10^3/uL Baso # (Auto) (0.0-0.1) 10^3/uL Absolute Nucleated RBC x10^3/uL Nucleated RBC % /100WBC Absolute Retic (0.020-0.110) 10^6/uL Sodium 134 L (135-145) mmol/L Potassium 4.7 (3.5-5.0) mmol/L Chloride 106 (101-111) mmol/L Carbon Dioxide 19 L (21-32) mmol/L Anion Gap 9.0 (6-13) BUN 73 H (6-20) mg/dL Creatinine 3.0 H (0.6-1.2) mg/dL Estimated GFR (MDRD) 21 L (>89) Glucose 163 H (70-100) mg/dL POC Whole Bld Glucose (70 - 100) mg/dL Estimat Average Glucose (70-100) mg/dL Hemoglobin A1c % (4.27-6.07) % Calcium 8.3 L (8.5-10.3) mg/dL Phosphorus (2.5-4.6) mg/dL Magnesium (1.7-2.8) mg/dL Iron (45-182) ug/dL TIBC (250-450) ug/dL % Saturation (20-50) % Transferrin (180-329) mg/dL Ferritin (23.9-336.2) ng/mL Total Bilirubin 0.7 (0.2-1.0) mg/dL AST 30 (10-42) IU/L ALT 18 (10-60) IU/L Alkaline Phosphatase 60 (42-121) IU/L Lactate Dehydrogenase (91-225) IU/L Troponin I High Sens 100.2 H* (2.3-19.7) ng/L B-Natriuretic Peptide (5-100) pg/mL Total Protein 8.1 (6.7-8.2) g/dL Albumin 3.0 L (3.2-5.5) g/dL Globulin 5.1 H (2.1-4.2) g/dL Albumin/Globulin Ratio 0.6 L (1.0-2.2) Lipase 52 H (22-51) U/L Vitamin B12 (180-914) pg/mL Nasal Adenovirus (PCR) NOT DETECTED Nasal B. parapertussis DNA (PCR) NOT DETECTED Nasal Coronavir 229E PCR NOT DETECTED Nasal Coronavir HKU1 PCR NOT DETECTED Nasal Coronavir NL63 PCR NOT DETECTED Nasal Coronavir OC43 PCR NOT DETECTED Nasal Enterovir/Rhinovir PCR NOT DETECTED Nasal Influenza B PCR NOT DETECTED Nasal Influenza A PCR NOT DETECTED Nasal Parainfluen 1 PCR NOT DETECTED Nasal Parainfluen 2 PCR NOT DETECTED Nasal Parainfluen 3 PCR NOT DETECTED Nasal Parainfluen 4 PCR NOT DETECTED Nasal RSV (PCR) NOT DETECTED Nasal B.pertussis DNA PCR NOT DETECTED Nasal C.pneumoniae (PCR) NOT DETECTED [place] Human Metapneumo PCR NOT DETECTED Nasal M.pneumoniae (PCR) NOT DETECTED Nasal SARS-CoV-2 (PCR) NOT DETECTED Blood Type Blood Type Recheck Antibody Screen Crossmatch IS Only 03/25/20 03/25/20 Range/Units 14:08 14:08 WBC 6.8 (4.8-10.8) x10^3/uL RBC 3.03 L (4.70-6.10) 10^6/uL Hgb 8.9 L (14.0-18.0) g/dL Hct 28.4 L (42.0-52.0) % MCV 93.7 (80.0-94.0) fL MCH 29.4 (27.0-31.0) pg MCHC 31.3 L (32.0-36.0) g/dL RDW 14.5 (12.0-15.0) % Plt Count 162 (130-450) 10^3/uL MPV 11.1 (7.4-11.4) fL Reticulocyte % (Auto) (0.5-2.3) % Neut # (Auto) 5.1 (1.5-6.6) 10^3/uL Lymph # (Auto) 0.8 L (1.5-3.5) 10^3/uL [place] # (Auto) 0.7 (0.0-1.0) 10^3/uL Eos # (Auto) 0.1 (0.0-0.7) 10^3/uL Baso # (Auto) 0.0 (0.0-0.1) 10^3/uL Absolute Nucleated RBC 0.00 x10^3/uL Nucleated RBC % 0.0 /100WBC Absolute Retic (0.020-0.110) 10^6/uL Sodium (135-145) mmol/L Potassium (3.5-5.0) mmol/L Chloride (101-111) mmol/L Carbon Dioxide (21-32) mmol/L Anion Gap (6-13) BUN (6-20) mg/dL Creatinine (0.6-1.2) mg/dL Estimated GFR (MDRD) (>89) Glucose (70-100) mg/dL POC Whole Bld Glucose (70 - 100) mg/dL Estimat Average Glucose (70-100) mg/dL Hemoglobin A1c % (4.27-6.07) % Calcium (8.5-10.3) mg/dL Phosphorus (2.5-4.6) mg/dL Magnesium (1.7-2.8) mg/dL Iron (45-182) ug/dL TIBC (250-450) ug/dL % Saturation (20-50) % Transferrin (180-329) mg/dL Ferritin (23.9-336.2) ng/mL Total Bilirubin (0.2-1.0) mg/dL AST (10-42) IU/L ALT (10-60) IU/L Alkaline Phosphatase (42-121) IU/L Lactate Dehydrogenase (91-225) IU/L Troponin I High Sens (2.3-19.7) ng/L B-Natriuretic Peptide 2871 H (5-100) pg/mL Total Protein (6.7-8.2) g/dL Albumin (3.2-5.5) g/dL Globulin (2.1-4.2) g/dL Albumin/Globulin Ratio (1.0-2.2) Lipase (22-51) U/L Vitamin B12 (180-914) pg/mL Nasal Adenovirus (PCR) Nasal B. parapertussis DNA (PCR) Nasal Coronavir 229E PCR Nasal Coronavir HKU1 PCR Nasal Coronavir NL63 PCR Nasal Coronavir OC43 PCR Nasal Enterovir/Rhinovir PCR Nasal Influenza B PCR Nasal Influenza A PCR Nasal Parainfluen 1 PCR Nasal Parainfluen 2 PCR Nasal Parainfluen 3 PCR Nasal Parainfluen 4 PCR Nasal RSV (PCR) Nasal B.pertussis DNA PCR Nasal C.pneumoniae (PCR) [place] Human Metapneumo PCR Nasal M.pneumoniae (PCR) Nasal SARS-CoV-2 (PCR) Blood Type Blood Type Recheck Antibody Screen Crossmatch IS Only Sepsis Event Note (H) - Evaluation Current Stage of Sepsis: Ruled out Assessment/Plan - Problem List (1) CHF exacerbation Impression: The etiology of his heart failure is not clear I do not have a prior echocardiogram and this is not available to us over the weekend. I am attempting to obtain records from his primary care provider. Clearly he is in acute heart failure as his BNP was nearly 3000 and his chest x-ray was consi stent with pulmonary vascular congestion. His weight has decreased today and his BNP has decreased but he still dyspneic at rest. We will continue to ice him with IV Lasix 60 mg daily. Trend BNP. Daily weights. Strict I's and O's. If he remains hospitalized until Saturday, will obtain echocardiogram then. We will follow up with his primary care provider to obtain records. Qualifiers: Heart failure type: unspecified Qualified Code(s): I50.9 - Heart failure, unspecified (2) Acute kidney injury superimposed on CKD Impression: His creatinine was elevated at 3.0 on admission and increased to 3.1 today. Reportedly, his baseline is 1.9 although I do not have labs available to me. This is presumed to be prerenal injury due to cardiorenal syndrome from the heart failure. We will continue to diurese him with IV Lasix given the heart failure. We will repeat his renal function this afternoon and monitor daily. We will obtain a renal ultrasound. We will also check urine electrolytes. We will attempt to obtain records and his primary care provider so that we can truly state that this is acute kidney injury and not chronic kidney disease as if his renal function worsens, he may need transfer to higher level of care. (3) Anemia Impression: This anemia is likely multifactorial secondary to his chronic kidney disease. He reports no evidence of bleeding at home. Iron studies are suggestive of possibly a component of iron deficiency anemia. We will transfuse 1 unit of packed red blood cell today given his hemoglobin decreased 7.7 and he is a history of coronary artery disease and his troponin is elevated at greater than 100. Goal hemoglobin is greater than 8. We will check his stool for occult bleeding. Recheck hemoglobin post transfusion. Qualifiers: Anemia type: unspecified type Qualified Code(s): D64.9 - Anemia, unspecified (4) Chronic respiratory failure with hypoxia Impression: He is on 3 L of oxygen at baseline due to what is believed to be his heart failure. He has no reported history of COPD. He is currently on his baseline oxygen requirements. Although he is not hypoxic compared to baseline, he still appears quite dyspneic and we will continue to diurese him for his heart failure. (5) Coronary artery disease Impression: He has a history of coronary artery disease. His troponin was elevated at greater than 100 but this is stable. His EKG did not suggest ischemia. This is likely demand ischemia due to the heart failure. We will continue his home aspirin, statin, beta-sadie. (6) Insulin dependent diabetes mellitus Impression: He has known insulin-dependent diabetes and his A1c is 8.4%. We will continue him on his current insulin regimen given his blood glucose is well controlled. Carb controlled diet.
[2020-03-26] MEDS ORDERED: FUROSEMIDE 20 MG/2 ML VIAL IVP ONE (10:00)
--- NOTE | 2020-03-26 11:25 | PHARMACY PROGRESS NOTE ---
- Best Possible Medication History Admit Date and Time: 03/25/20 2449 Processed by: Pharmacy Medication History completed: Yes Patient Interview: Completed Secondary Source(s): Pharmacy records, Insurance records (PT HAS A SPORATIC PRESCRIPTION FILL HISTORY, SUGGESTING POOR COMPLIANCE) As the person ultimately responsible for medication therapy, providers are able to order a medication from an existing home medication list in [facility] via the "Reconcile Routine" prior to Confirmation of that medication by support services tech. Such practice is discouraged except when the physician, in their clinical judgment, deems that a medical need exists for a medication without regard to previous use.
[2020-03-26] MEDS: hydrALAZINE 25 MG TABLET PO SCH ×2 (14:11→21:33)
--- NOTE | 2020-03-26 14:17 | Ultrasound Report ---
PROCEDURE: Retroperitoneal INDICATIONS: Acute kidney injury. TECHNIQUE: Real-time scanning was performed of the retroperitoneal organs, with image documentation. COMPARISON: None. FINDINGS: Kidneys: Kidneys are normal in size. Right kidney measures 11.2. cm long; left kidney measures 10.7 cm long. Right renal cortical thickness is 1.5 cm; left renal cortical thickness is 1.5 cm. No xi id masses, hydronephrosis, or nephrolithiasis. Subcentimeter left inferior pole simple cyst. 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 Bladder: Prevoid bladder volume measures 337 cc. Bilateral ureteral jets are noted. Postvoid bladder volume measures 28.7 cc. No evidence of focal wall thickening on the prevoid bladder images. IMPRESSION: No evidence of hydronephrosis or other acute abnormality. Reviewed by: Eliot Wilkinson DO on 03/26/2020 1:16 PM [facility] Approved by: Eliot Wilkinson DO on 03/26/2020 1:16 PM [facility] Station ID: [id number]
[2020-03-26 15:51] LABS: HGB - HEMOGLOBIN 8.7 g/dL (14.0-18.0); MEAN CORPUSCULAR HEMOGLOBIN 29.4 pg (27.0-31.0); MEAN CORPUSCULAR HGB CONC 31.5 g/dL (32.0-36.0); MEAN CORPUSCULAR VOLUME 93.2 fL (80.0-94.0); MEAN PLATELET VOLUME 10.8 fL (7.4-11.4); RED BLOOD COUNT 2.96 10^6/uL (4.70-6.10); RED CELL DISTRIBUTION WIDTH 15.1 % (12.0-15.0); WHITE BLOOD COUNT 5.9 x10^3/uL (4.8-10.8)
[2020-03-26 16:01] LABS: CALCIUM 8.3 mg/dL (8.5-10.3); CREATININE 3.1 mg/dL (0.6-1.2)
[2020-03-26] MEDS: GABAPENTIN 300 MG CAPSULE PO SCH (20:41)
[2020-03-26] MEDS: ARIPiprazole 5 MG TABLET PO SCH (20:42)
[2020-03-26] MEDS: ATORVASTATIN 40 MG TABLET PO SCH (20:42)
[2020-03-26] MEDS: DULoxetine 30 MG CAPSULE PO SCH (20:44)
[2020-03-27] MEDS: SODIUM CHLORIDE FLUSH 0.9% 10 ML SYRINGE IVP SCH ×4 (01:52→23:43)
[2020-03-27 05:39] LABS: BASOPHILS % (AUTO) 0.4 %; EOSINOPHILS # (AUTO) 0.7 10^3/uL (0.0-0.7); EOSINOPHILS % (AUTO) 11.6 %; HGB - HEMOGLOBIN 8.1 g/dL (14.0-18.0); LYMPHOCYTES # (AUTO) 1.3 10^3/uL (1.5-3.5); LYMPHOCYTES % (AUTO) 23.3 %; MEAN CORPUSCULAR HEMOGLOBIN 28.6 pg (27.0-31.0); MEAN CORPUSCULAR HGB CONC 30.6 g/dL (32.0-36.0); MEAN CORPUSCULAR VOLUME 93.6 fL (80.0-94.0); MEAN PLATELET VOLUME 10.4 fL (7.4-11.4); MONOCYTES # (AUTO) 0.5 10^3/uL (0.0-1.0); MONOCYTES % (AUTO) 9.5 %; NEUTROPHILS # (AUTO) 3.1 10^3/uL (1.5-6.6); NEUTROPHILS % (AUTO) 54.8 %; PLT - PLATELET COUNT 145 10^3/uL (130-450); RED BLOOD COUNT 2.83 10^6/uL (4.70-6.10); RED CELL DISTRIBUTION WIDTH 15.4 % (12.0-15.0); WHITE BLOOD COUNT 5.7 x10^3/uL (4.8-10.8)
[2020-03-27 05:47] LABS: CALCIUM 8.4 mg/dL (8.5-10.3); CREATININE 3.6 mg/dL (0.6-1.2)
[2020-03-27] MEDS: hydrALAZINE 25 MG TABLET PO SCH (06:06)
[2020-03-27] MEDS: TAMSULOSIN 0.4 MG CAPSULE PO SCH (08:09)
[2020-03-27] MEDS: carvediloL 3.125 MG TABLET PO SCH (08:09)
[2020-03-27] MEDS: FENOFIBRATE 48 MG TABLET PO SCH (08:09)
[2020-03-27] MEDS: HEPARIN 5,000 UNIT/ML VIAL SUBQ SCH ×2 (08:11→21:16)
[2020-03-27] MEDS ORDERED: FUROSEMIDE 100 MG/10 ML VIAL IVP SCH (09:00)
[2020-03-27] MEDS ORDERED: amLODIPine 5 MG TABLET PO SCH (09:00)
--- NOTE | 2020-03-27 09:31 | XRAY Report ---
PROCEDURE: Chest 1 View X-Ray INDICATIONS: Follow up CHF. TECHNIQUE: One view of the chest was acquired. COMPARISON: 03/25/2020 FINDINGS: Surgical changes and devices: Post-CABG changes. Lungs and pleura: No diffuse interstitial and alveolar opacities similar to prior examination. There is obscuration of the pulmonary vasculature. No large volume pleural effusion. No pneumothorax. Mediastinum: Unchanged cardiomegaly and post-CABG changes. Bones and chest wall: No suspicious bony lesions. Overlying soft tissues appear unremarkable. IMPRESSION: No significant interval change with findings suggestive of CHF with pulmonary edema. Underlying infec tion not entirely excluded. Reviewed by: Eliot Wilkinson DO on 03/27/2020 8:29 AM JAMIL Approved by: Eliot Wilkinson DO on 03/27/2020 8:29 AM [place] Station ID: [id number]
[2020-03-27] MEDS: INSULIN ASPART 300 UNIT/3 ML PEN SUBQ SCH ×4 (09:50→21:15)
[2020-03-27 10:21] LABS: BILIRUBIN,URINE NEGATIVE (NEGATIVE); GLUCOSE, URINE (UA) NEGATIVE (NEGATIVE); KETONES,URINE (UA) NEGATIVE (NEGATIVE); LEUKOCYTE ESTERASE, URINE NEGATIVE (NEGATIVE); NITRITE,URINE NEGATIVE (NEGATIVE); OCCULT BLOOD,URINE NEGATIVE (NEGATIVE); PROTEIN,URINE 100 mg/dL (NEGATIVE); UROBILINOGEN,URINE 0.2 (NORMAL) E.U./dL (NORMAL)
[2020-03-27 10:22] LABS: CLARITY,URINE CLEAR (CLEAR)
[2020-03-27 10:52] LABS: BACTERIA,URINE None Seen /HPF (None Seen); RBC,URINE 0-5 /HPF (0-5); SQUAMOUS EPITHELIAL CELL,UR FEW Squamous (<= Few)
[2020-03-27 11:24] LABS: CALCIUM 8.4 mg/dL (8.5-10.3); CREATININE 3.6 mg/dL (0.6-1.2)
--- NOTE | 2020-03-27 11:27 | PROVIDER PROGRESS NOTE ---
Subjective - Prog Note Date Prog Note Date: 03/27/20 - Subjective Subjective: He feels much less short of breath today. Denies any chest pain. Still a slight cough. Reports improvement in his lower extremity edema. Current Medications - Current Medications Current Medications: Active Medications Acetaminophen (Tylenol) 650 mg PO Q4HR PRN PRN Reason: Pain 1 to 4 Aripiprazole (Abilify) 5 mg PO QPM [facility] Last Admin: 03/26/20 20:42 Dose: 5 mg Documented by: Atorvastatin Calcium (Lipitor) 40 mg PO QPM [facility] Last Admin: 03/26/20 20:42 Dose: 40 mg Documented by: Carvedilol (Coreg) 6.25 mg PO BID [facility] Last Admin: 03/27/20 08:09 Dose: 6.25 mg Documented by: Duloxetine HCl (Cymbalta) 60 mg PO QPM [facility] Last Admin: 03/26/20 20:44 Dose: 60 mg Documented by: Fenofibrate (Tricor) 144 mg PO DAILY [facility] Last Admin: 03/27/20 08:09 Dose: 144 mg Documented by: Gabapentin (Neurontin) 300 mg PO QPM [facility] Last Admin: 03/26/20 20:41 Dose: 300 mg Documented by: Heparin Sodium (Porcine) () 5,000 unit SUBQ BID [facility] Last Admin: 03/27/20 08:11 Dose: 5,000 unit Documented by: Insulin Aspart (Novolog) 1 - 9 unit SUBQ 0800,1200,1700,2100 [facility]; Protocol Last Admin: 03/27/20 09:50 Dose: Not Given Documented by: Ondansetron HCl (Zofran Inj) 4 mg IVP Q6HR PRN PRN Reason: Nausea / Vomiting Sodium Chloride (Normal Saline Flush 0.9%) 10 ml IVP PRN PRN PRN Reason: NEEDED PER PROVIDER ORDERS Sodium Chloride (Normal Saline Flush 0.9%) 10 ml IVP 0100,0900,1700 [facility] Last Admin: 03/27/20 09:51 Dose: 10 ml Documented by: Tamsulosin HCl (Flomax) 0.4 mg PO DAILY [facility] Last Admin: 03/27/20 08:09 Dose: 0.4 mg Documented by: Aspirin [Aspirin EC] 81 mg PO DAILY 03/25/20 Furosemide [Lasix] 40 mg PO BIDDIURETIC 03/25/20 Insulin Lispro [Humalog] 20 - 30 units SUBQ BIDWM 03/25/20 carvediloL [Coreg] 6.25 mg PO BID 03/25/20 ARIPiprazole [Abilify] 5 mg PO QPM 03/26/20 Atorvastatin Calcium 40 mg PO QPM 03/26/20 Duloxetine HCl [Cymbalta] 60 mg PO QPM 03/26/20 Fenofibrate,Micronized [Fenofibrate] 134 mg PO DAILY 03/26/20 Tamsulosin HCl [Flomax] 0.4 mg PO DAILY 03/26/20 amLODIPine [Norvasc] 5 mg PO DAILY 03/26/20 hydrALAZINE [Apresoline] 25 mg PO TID 03/26/20 Objective - Vital Signs/Intake & Output Reviewed Vital Signs: Yes Vital Signs: Vital Signs x48h Temp Pulse Resp BP Pulse Ox 03/27/20 09:00 36.4 C L 50 L 20 112/61 95 03/27/20 05:00 36.8 C 52 L 20 105/51 L 94 Intake & Output: Intake & Output 03/24/20 03/25/20 03/26/20 03/27/20 23:59 23:59 23:59 23:59 Intake Total 400 1580 640 Output Total 750 1725 200 Balance -350 -145 440 - Objective General Appearance: positive: No acute distress, Alert ENT: positive: ENT inspection nml, Other (Nasal cannula in place.) Neck: positive: Nml inspection Respiratory: positive: No respiratory distress, Rales, Other (He still has faint rales bilaterally. He is much less tachypneic today.). negative: Wheezes Cardiovascular: positive: Regular rate & rhythm. negative: Tachycardia Skin: positive: Warm, Dry Extremities: positive: Pedal edema (Trace to +1 pitting edema in bilateral lower extremity.) - Lab Results Fish Bones: 03/27/20 05:30 03/27/20 11:02 Other Labs: Lab Results x24hrs 03/27/20 03/27/20 03/27/20 Range/Units 11:02 09:30 09:30 WBC (4.8-10.8) x10^3/uL RBC (4.70-6.10) 10^6/uL Hgb (14.0-18.0) g/dL Hct (42.0-52.0) % MCV (80.0-94.0) fL MCH (27.0-31.0) pg MCHC (32.0-36.0) g/dL RDW (12.0-15.0) % Plt Count (130-450) 10^3/uL MPV (7.4-11.4) fL Neut # (Auto) (1.5-6.6) 10^3/uL Lymph # (Auto) (1.5-3.5) 10^3/uL [place] # (Auto) (0.0-1.0) 10^3/uL Eos # (Auto) (0.0-0.7) 10^3/uL Baso # (Auto) (0.0-0.1) 10^3/uL Absolute Nucleated RBC x10^3/uL Nucleated RBC % /100WBC Sodium 137 (135-145) mmol/L Potassium 4.5 (3.5-5.0) mmol/L Chloride 101 (101-111) mmol/L Carbon Dioxide 21 (21-32) mmol/L Anion Gap 15.0 H (6-13) BUN 77 H (6-20) mg/dL Creatinine 3.6 H (0.6-1.2) mg/dL Estimated GFR (MDRD) 17 L (>89) Glucose 210 H (70-100) mg/dL POC Whole Bld Glucose (70 - 100) mg/dL Calcium 8.4 L (8.5-10.3) mg/dL B-Natriuretic Peptide (5-100) pg/mL Urine Color YELLOW Urine Clarity CLEAR (CLEAR) Urine pH 5.0 (5.0-7.5) PH Ur Specific Candor >=1.030 H (1.002-1.030) Urine Protein 100 H (NEGATIVE) mg/dL Urine Glucose (UA) NEGATIVE (NEGATIVE) mg/dL Urine Ketones NEGATIVE (NEGATIVE) mg/dL Urine Occult Blood NEGATIVE (NEGATIVE) Urine Nitrite NEGATIVE (NEGATIVE) Urine Bilirubin NEGATIVE (NEGATIVE) Urine Urobilinogen 0.2 (NORMAL) (NORMAL) E.U./dL Ur Leukocyte Esterase NEGATIVE (NEGATIVE) Urine RBC 0-5 (0-5) /HPF Urine WBC 0-3 (0-3) /HPF Ur Squamous Epith Cells FEW Squamous (<= Few) Urine Bacteria None Seen (None Seen) /HPF Urine Casts 0-2 Hyaline Casts /LPF Ur Random Chloride 14 mmol/L Urine Sodium 27.0 mmol/L Blood Type Antibody Screen Crossmatch IS Only 03/27/20 03/27/20 03/27/20 Range/Units 07:40 05:30 05:30 WBC (4.8-10.8) x10^3/uL RBC (4.70-6.10) 10^6/uL Hgb (14.0-18.0) g/dL Hct (42.0-52.0) % MCV (80.0-94.0) fL MCH (27.0-31.0) pg MCHC (32.0-36.0) g/dL RDW (12.0-15.0) % Plt Count (130-450) 10^3/uL MPV (7.4-11.4) fL Neut # (Auto) (1.5-6.6) 10^3/uL Lymph # (Auto) (1.5-3.5) 10^3/uL [place] # (Auto) (0.0-1.0) 10^3/uL Eos # (Auto) (0.0-0.7) 10^3/uL Baso # (Auto) (0.0-0.1) 10^3/uL Absolute Nucleated RBC x10^3/uL Nucleated RBC % /100WBC Sodium 135 (135-145) mmol/L Potassium 4.5 (3.5-5.0) mmol/L Chloride 104 (101-111) mmol/L Carbon Dioxide 20 L (21-32) mmol/L Anion Gap 11.0 (6-13) BUN 78 H (6-20) mg/dL Creatinine 3.6 H (0.6-1.2) mg/dL Estimated GFR (MDRD) 17 L (>89) Glucose 130 H (70-100) mg/dL POC Whole Bld Glucose 100 (70 - 100) mg/dL Calcium 8.4 L (8.5-10.3) mg/dL B-Natriuretic Peptide 1126 H (5-100) pg/mL Urine Color Urine Clarity (CLEAR) Urine pH (5.0-7.5) PH Ur Specific Candor (1.002-1.030) Urine Protein (NEGATIVE) mg/dL Urine Glucose (UA) (NEGATIVE) mg/dL Urine Ketones (NEGATIVE) mg/dL Urine Occult Blood (NEGATIVE) Urine Nitrite (NEGATIVE) Urine Bilirubin (NEGATIVE) Urine Urobilinogen (NORMAL) E.U./dL Ur Leukocyte Esterase (NEGATIVE) Urine RBC (0-5) /HPF Urine WBC (0-3) /HPF Ur Squamous Epith Cells (<= Few) Urine Bacteria (None Seen) /HPF Urine Casts /LPF Ur Random Chloride mmol/L Urine Sodium mmol/L Blood Type Antibody Screen Crossmatch IS Only 03/27/20 03/26/20 03/26/20 Range/Units 05:30 20:19 16:23 WBC 5.7 (4.8-10.8) x10^3/uL RBC 2.83 L (4.70-6.10) 10^6/uL Hgb 8.1 L (14.0-18.0) g/dL Hct 26.5 L (42.0-52.0) % MCV 93.6 (80.0-94.0) fL MCH 28.6 (27.0-31.0) pg MCHC 30.6 L (32.0-36.0) g/dL RDW 15.4 H (12.0-15.0) % Plt Count 145 (130-450) 10^3/uL MPV 10.4 (7.4-11.4) fL Neut # (Auto) 3.1 (1.5-6.6) 10^3/uL Lymph # (Auto) 1.3 L (1.5-3.5) 10^3/uL [place] # (Auto) 0.5 (0.0-1.0) 10^3/uL Eos # (Auto) 0.7 (0.0-0.7) 10^3/uL Baso # (Auto) 0.0 (0.0-0.1) 10^3/uL Absolute Nucleated RBC 0.00 x10^3/uL Nucleated RBC % 0.0 /100WBC Sodium (135-145) mmol/L Potassium (3.5-5.0) mmol/L Chloride (101-111) mmol/L Carbon Dioxide (21-32) mmol/L Anion Gap (6-13) BUN (6-20) mg/dL Creatinine (0.6-1.2) mg/dL Estimated GFR (MDRD) (>89) Glucose (70-100) mg/dL POC Whole Bld Glucose 189 H 185 H (70 - 100) mg/dL Calcium (8.5-10.3) mg/dL B-Natriuretic Peptide (5-100) pg/mL Urine Color Urine Clarity (CLEAR) Urine pH (5.0-7.5) PH Ur Specific Candor (1.002-1.030) Urine Protein (NEGATIVE) mg/dL Urine Glucose (UA) (NEGATIVE) mg/dL Urine Ketones (NEGATIVE) mg/dL Urine Occult Blood (NEGATIVE) Urine Nitrite (NEGATIVE) Urine Bilirubin (NEGATIVE) Urine Urobilinogen (NORMAL) E.U./dL Ur Leukocyte Esterase (NEGATIVE) Urine RBC (0-5) /HPF Urine WBC (0-3) /HPF Ur Squamous Epith Cells (<= Few) Urine Bacteria (None Seen) /HPF Urine Casts /LPF Ur Random Chloride mmol/L Urine Sodium mmol/L Blood Type Antibody Screen Crossmatch IS Only 03/26/20 03/26/20 03/26/20 Range/Units 15:39 15:39 11:45 WBC 5.9 (4.8-10.8) x10^3/uL RBC 2.96 L (4.70-6.10) 10^6/uL Hgb 8.7 L (14.0-18.0) g/dL Hct 27.6 L (42.0-52.0) % MCV 93.2 (80.0-94.0) fL MCH 29.4 (27.0-31.0) pg MCHC 31.5 L (32.0-36.0) g/dL RDW 15.1 H (12.0-15.0) % Plt Count 142 (130-450) 10^3/uL MPV 10.8 (7.4-11.4) fL Neut # (Auto) (1.5-6.6) 10^3/uL Lymph # (Auto) (1.5-3.5) 10^3/uL [place] # (Auto) (0.0-1.0) 10^3/uL Eos # (Auto) (0.0-0.7) 10^3/uL Baso # (Auto) (0.0-0.1) 10^3/uL Absolute Nucleated RBC x10^3/uL Nucleated RBC % /100WBC Sodium 132 L (135-145) mmol/L Potassium 4.7 (3.5-5.0) mmol/L Chloride 100 L (101-111) mmol/L Carbon Dioxide 20 L (21-32) mmol/L Anion Gap 12.0 (6-13) BUN 71 H (6-20) mg/dL Creatinine 3.1 H (0.6-1.2) mg/dL Estimated GFR (MDRD) 20 L (>89) Glucose 211 H (70-100) mg/dL POC Whole Bld Glucose 194 H (70 - 100) mg/dL Calcium 8.3 L (8.5-10.3) mg/dL B-Natriuretic Peptide (5-100) pg/mL Urine Color Urine Clarity (CLEAR) Urine pH (5.0-7.5) PH Ur Specific Candor (1.002-1.030) Urine Protein (NEGATIVE) mg/dL Urine Glucose (UA) (NEGATIVE) mg/dL Urine Ketones (NEGATIVE) mg/dL Urine Occult Blood (NEGATIVE) Urine Nitrite (NEGATIVE) Urine Bilirubin (NEGATIVE) Urine Urobilinogen (NORMAL) E.U./dL Ur Leukocyte Esterase (NEGATIVE) Urine RBC (0-5) /HPF Urine WBC (0-3) /HPF Ur Squamous Epith Cells (<= Few) Urine Bacteria (None Seen) /HPF Urine Casts /LPF Ur Random Chloride mmol/L Urine Sodium mmol/L Blood Type Antibody Screen Crossmatch IS Only 03/26/20 Range/Units 07:38 WBC (4.8-10.8) x10^3/uL RBC (4.70-6.10) 10^6/uL Hgb (14.0-18.0) g/dL Hct (42.0-52.0) % MCV (80.0-94.0) fL MCH (27.0-31.0) pg MCHC (32.0-36.0) g/dL RDW (12.0-15.0) % Plt Count (130-450) 10^3/uL MPV (7.4-11.4) fL Neut # (Auto) (1.5-6.6) 10^3/uL Lymph # (Auto) (1.5-3.5) 10^3/uL [place] # (Auto) (0.0-1.0) 10^3/uL Eos # (Auto) (0.0-0.7) 10^3/uL Baso # (Auto) (0.0-0.1) 10^3/uL Absolute Nucleated RBC x10^3/uL Nucleated RBC % /100WBC Sodium (135-145) mmol/L Potassium (3.5-5.0) mmol/L Chloride (101-111) mmol/L Carbon Dioxide (21-32) mmol/L Anion Gap (6-13) BUN (6-20) mg/dL Creatinine (0.6-1.2) mg/dL Estimated GFR (MDRD) (>89) Glucose (70-100) mg/dL POC Whole Bld Glucose (70 - 100) mg/dL Calcium (8.5-10.3) mg/dL B-Natriuretic Peptide (5-100) pg/mL Urine Color Urine Clarity (CLEAR) Urine pH (5.0-7.5) PH Ur Specific Candor (1.002-1.030) Urine Protein (NEGATIVE) mg/dL Urine Glucose (UA) (NEGATIVE) mg/dL Urine Ketones (NEGATIVE) mg/dL Urine Occult Blood (NEGATIVE) Urine Nitrite (NEGATIVE) Urine Bilirubin (NEGATIVE) Urine Urobilinogen (NORMAL) E.U./dL Ur Leukocyte Esterase (NEGATIVE) Urine RBC (0-5) /HPF Urine WBC (0-3) /HPF Ur Squamous Epith Cells (<= Few) Urine Bacteria (None Seen) /HPF Urine Casts /LPF Ur Random Chloride mmol/L Urine Sodium mmol/L Blood Type A POSITIVE Antibody Screen NEGATIVE Crossmatch IS Only See Detail ABX Reporting Has patient been on IV antibiotics over the past 48 hours?: Yes Sepsis Event Note (H) - Evaluation Current Stage of Sepsis: Ruled out Assessment/Plan - Problem List (1) CHF exacerbation Impression: Clinically he appears to be improving. His BNP is decreasing as well as his weight. His lower extremity edema is significantly improved. He still remains on oxygen but this is baseline for him. He appears much more comfortable today. It is unclear if he has diastolic or systolic heart failure and I had not been able to obtain records from his primary care provider but hopefully will be able to tomorrow. At this time, we will hold off on further diuresis given his worsening renal function and he appears close to euvolemia. We will repeat a chest x-ray today. We will obtain echocardiogram tomorrow. Qualifiers: Heart failure type: unspecified Qualified Code(s): I50.9 - Heart failure, unspecified (2) Acute kidney injury superimposed on CKD Impression: His renal function unfortunately is worse today with a creatinine of 3.6. Initially was thought he had cardiorenal syndrome given the heart failure but despite diuresis, his renal function is worsening. He does appear euvolemic now so we will hold off on further diuresis. Renal ultrasound was obtained yesterday which was unremarkable. We will check urine electrolytes including sodium and chloride. He is on a diuretic so urine sodium will be skewed but unfortunate, urine urea is not available at our facility. We will also repeat a urinalysis as his blood pressures have been lower compared to admission so there could be a component of ATN causing his worsening renal function. We will recheck a BMP this evening. If his renal function continues to decline then he may need transfer to higher level of care. I am still not sure what his baseline creatinine is although prior documentation reported it was 1.9. I will attempt to obtain more records from his primary care provider tomorrow to have a better understanding. (3) Anemia Impression: He responded well to transfusion yesterday but hemoglobin is decreased again this morning to 8.1. There has been no evidence of bleeding. Stool occult has been ordered and is pending. His iron threes are suggestive of iron deficiency anemia given the low iron and low percent saturation although his ferritin is normal although this could be elevated as an acute phase reactant. We will start him on oral iron supplementation. We will recheck CBC in the morning. Goal hemoglobin greater than 8 given his history of coronary artery disease. Qualifiers: Anemia type: unspecified type Qualified Code(s): D64.9 - Anemia, unspecified (4) Chronic respiratory failure with hypoxia Impression: This is stable and he is on his baseline oxygen requirements. This appears be secondary to his heart failure. (5) Coronary artery disease Impression: Troponin was elevated but this was likely due to heart failure and was demand ischemia. EKG did not suggest ischemia. We are holding aspirin for the time being given his anemia although there is no evidence of bleeding, we will resume this. (6) Insulin dependent diabetes mellitus Impression: We will start him on Lantus and NovoLog with meals given his elevated blood glucose. Carb controlled diet.
[2020-03-27] MEDS: FERROUS SULFATE 325 MG TABLET PO SCH (16:48)
[2020-03-27] MEDS ORDERED: INSULIN GLARGINE 300 UNIT/3 ML PEN SUBQ SCH (21:00)
[2020-03-27] MEDS: GABAPENTIN 300 MG CAPSULE PO SCH (21:14)
[2020-03-27] MEDS: DULoxetine 30 MG CAPSULE PO SCH (21:14)
[2020-03-27] MEDS: ARIPiprazole 5 MG TABLET PO SCH (21:14)
[2020-03-27] MEDS: ATORVASTATIN 40 MG TABLET PO SCH (21:14)
[2020-03-28 05:43] LABS: BASOPHILS % (AUTO) 0.4 %; EOSINOPHILS # (AUTO) 0.7 10^3/uL (0.0-0.7); EOSINOPHILS % (AUTO) 14.4 %; HGB - HEMOGLOBIN 8.4 g/dL (14.0-18.0); LYMPHOCYTES % (AUTO) 21.5 %; MEAN CORPUSCULAR HEMOGLOBIN 28.8 pg (27.0-31.0); MEAN CORPUSCULAR HGB CONC 30.3 g/dL (32.0-36.0); MEAN CORPUSCULAR VOLUME 94.9 fL (80.0-94.0); MEAN PLATELET VOLUME 11.3 fL (7.4-11.4); MONOCYTES # (AUTO) 0.5 10^3/uL (0.0-1.0); MONOCYTES % (AUTO) 10.8 %; NEUTROPHILS # (AUTO) 2.5 10^3/uL (1.5-6.6); NEUTROPHILS % (AUTO) 52.5 %; PLT - PLATELET COUNT 164 10^3/uL (130-450); RED BLOOD COUNT 2.92 10^6/uL (4.70-6.10); RED CELL DISTRIBUTION WIDTH 15.3 % (12.0-15.0); WHITE BLOOD COUNT 4.8 x10^3/uL (4.8-10.8)
[2020-03-28 06:01] LABS: CALCIUM 8.2 mg/dL (8.5-10.3); CREATININE 4.5 mg/dL (0.6-1.2)
[2020-03-28] MEDS ORDERED: LACTATED RINGERS 500 ML IV ONE (07:11)
[2020-03-28] MEDS: SODIUM CHLORIDE FLUSH 0.9% 10 ML SYRINGE IVP SCH ×2 (07:47→18:22)
[2020-03-28] MEDS: FERROUS SULFATE 325 MG TABLET PO SCH (07:48)
[2020-03-28] MEDS: INSULIN ASPART 300 UNIT/3 ML PEN SUBQ SCH ×6 (07:48→17:10)
[2020-03-28] MEDS: HEPARIN 5,000 UNIT/ML VIAL SUBQ SCH (09:13)
[2020-03-28] MEDS: FENOFIBRATE 48 MG TABLET PO SCH (09:14)
[2020-03-28] MEDS: TAMSULOSIN 0.4 MG CAPSULE PO SCH (09:14)
[2020-03-28] MEDS: LACTATED RINGERS 1,000 ML IV SCH ×2 (09:17→12:02)
[2020-03-28 15:06] LABS: CALCIUM 8.1 mg/dL (8.5-10.3); CREATININE 4.5 mg/dL (0.6-1.2)
[2020-03-28] MEDS ORDERED: INSULIN REGULAR HUMAN 300 UNIT/3 ML VIAL IVP ONE (15:11)
[2020-03-28] MEDS ORDERED: DEXTROSE 50% ABBOJECT 25 GM/50 ML SYRINGE IVP ONE (15:11)
[2020-03-28] MEDS ORDERED: SODIUM POLYSTYRENE SULFONATE 15 GM/60 ML BOTTLE PO ONE (16:06)
--- NOTE | 2020-03-28 16:12 | DISCHARGE SUMMARY ---
"Discharge Summary Admit Date: 03/25/20 Discharge Date: 03/28/20 Discharging Provider: Nhan Tineo Primary Care Provider: JOSE Marshall Code Status: Attempt Resuscitation Condition at Discharge: Stable Discharge Disposition: 02 Transfer Acute Care Hosp Discharge Facility Name: [facility] - DIAGNOSES Admission Diagnoses: CHF exacerbation Elevated troponin Shortness of breath Bilateral lower extremity edema Acute kidney injury Diabetes Anemia Discharge Diagnoses with Status of Each Condition: Acute on chronic heart failure with preserved ejection fraction - improved. Acute kidney injury superimposed on chronic kidney disease - ongoing. Anemia due to multiple mechanisms - stable. Chronic respiratory failure with hypoxia - stable. Coronary artery disease s/p CABG - stable. Insulin-dependent diabetes mellitus - stable. Sinus bradycardia - stable. - HPI History of Present Illness: H&P per JOSE Moreira: This is a 69-yrs old male with a PMH significant for CHF, CAD, Diabetes, CKD who present ER complain of shortness of breath, increasing bilateral lower extremity edema. pt report he came from [facility] and in the holiday to visit his sister in [facility]. pt report he usually take 3 liter of O2 at home. In the recently two days, he feel more shortness of breath, increase of his bilateral leg edema. pt also report his weight increased in the recent couple of weeks. pt report he did not know he has kidney problem before. pt denies chest pain, fever, chill, nausea, vomiting, abdominal pain. Chest x-ray is suggestion of CHF. Lab test show pt has creatinine 3.0, BUN 73, BNP is 2871. pt also has elevated troponin at 100, repeated his Troponin is 111. EKG has sinus rhythm without ST segment variation. In ER, pt is afebile, pt has 86% sat on room air, then his O2 sat increased to 98% on 3 liter of O2. Discussed the care goal with the patient, patient request full code - HOSPITAL COURSE Hospital Course: He was admitted to the floor for acute on chronic heart failure. His chest x- ray is consistent with pulmonary vascular congestion and his BNP was about 3000. He is on 3 L of oxygen at baseline for heart failure and he was not requiring more oxygen than his baseline but he did have significant lower extremity edema. He was diuresed initially with 40 mg of Lasix IV twice daily with improvement in his dyspnea and lower extremity edema. He was switched to 60 mg of IV daily. Initial creatinine was 3.0 on admission and the following day this increased to 3.1. It was initially not known what his baseline creatinine is but it was later found to be about 2.8. The patient had told us it was about 1.9 initially and it was felt that he had acute kidney injury likely due to cardiorenal syndrome from the heart failure. Unfortunately, despite IV diuresis, his creatinine began to increase and the following day to increase to 3.6 from 3.1. His IV Lasix was then discontinued given his edema had improved and he felt less dyspneic. His blood pressures had decreased from 130s to 140s initially down to the low 100s and there was concern for possible ATN and so urinalysis and urine sodium were obtained. Urinalysis did reveal some granular casts. His urine sodium was 27 despite being on IV Lasix. A renal ultrasound was also obtained which showed no obstruction or hydronephrosis. Despite holding his IV diuretics, the following day his creatinine increased to 4.5 and his potassium was 5.1. He was given a 500 mL bolus and started on lactated Ringer's at 100 mL an hour. Repeat labs were checked 6 hours later and his BUN continued to rise and was nearly 100. His creatinine was stable at 4.5 but his potassium had increased to 5.4. Given his worsening renal function, a decision was made to transfer the patient to a higher level of care. I did speak with Dr. Zuniga of [facility] at [facility] who graciously accepted the patient in transfer. I did initially contact [facility] in [place] but they had no beds available. The patient would administer 10 units of IV insulin and dextrose prior to transfer. He was also given a dose of Kayexalate. During this hospitalization, he was found to be anemic with a hemoglobin of 8.9 initially. This decreased to 7.7 the following day. Given his history of coronary artery disease, he was given 1 unit of packed red blood cell. His hemoglobin has since been stable in the mid 8's. There has been no evidence of bleeding and his stool is negative for occult bleeding. After reviewing labs from his primary care provider, it appears his baseline hemoglobin is between 9- 10. Iron studies were obtained prior to transfusion and his iron was decreased at 10, TIBC was 316, percent saturation was 3 and transferrin was 226. His ferritin was 273. He was started on oral iron supplementation. Also during this hospitalization, his initial troponin was found to be elevated in the low 100s. This is a high-sensitivity troponin and this was flat. His EKG did not suggest ischemia. It was felt to be demand ischemia due to the heart failure. We did obtain echocardiogram which showed an ejection fraction of 45 to 50%. He also had basal and mid inferior and mid inferior lateral wall segment hypokinesis. There was no comment on diastolic dysfunction although this is a preliminary report. Obtaining his primary care provider records, it was found that he had an echocardiogram earlier this month where his ejection fraction was also 45 to 50%. He had normal diastolic function. It was also noted that he had inferior wall hypokinesis plus anterior apical akinesis. His carvedilol has been held for the past 24 hours as he has been bradycardic with heart rates in the high 40s to low 50s. Once again, given his worsening renal function, he was transferred to [facility] for nephrology evaluation and the possible need for dialysis if his renal function continued to decline. We once again would like to thank Dr. Zuniga of the hospitalist service for accepting this patient in transfer. - ALLERGIES Allergies/Adverse Reactions: Allergies Allergy/AdvReac Type Severity Reaction Status Date / Time Penicillins Allergy Unknown Verified 03/25/20 13:21 Sulfa (Sulfonamide Allergy Unknown Verified 03/25/20 13:21 Antibiotics) - MEDICATIONS Home Medications: Ambulatory Orders Medication Instructions Recorded Confirmed Aspirin [Aspirin EC] 81 mg PO DAILY 03/25/20 03/26/20 Furosemide [Lasix] 40 mg PO BIDDIURETIC 03/25/20 03/26/20 Insulin Lispro [Humalog] 20 - 30 units SUBQ BIDWM 03/25/20 03/26/20 carvediloL [Coreg] 6.25 mg PO BID 03/25/20 03/26/20 ARIPiprazole [Abilify] 5 mg PO QPM 03/26/20 03/26/20 Atorvastatin Calcium 40 mg PO QPM 03/26/20 03/26/20 Duloxetine HCl [Cymbalta] 60 mg PO QPM 03/26/20 03/26/20 Fenofibrate,Micronized 134 mg PO DAILY 03/26/20 03/26/20 [Fenofibrate] Tamsulosin HCl [Flomax] 0.4 mg PO DAILY 03/26/20 03/26/20 amLODIPine [Norvasc] 5 mg PO DAILY 03/26/20 03/26/20 hydrALAZINE [Apresoline] 25 mg PO TID 03/26/20 03/26/20 Home Medications Other | Comments: Active Medications Acetaminophen (Tylenol) 650 mg PO Q4HR PRN PRN Reason: Pain 1 to 4 Aripiprazole (Abilify) 5 mg PO QPM [facility] Last Admin: 03/27/20 21:14 Dose: 5 mg Documented by: Aspirin (Aspirin Chew 81 Mg Tablet) 81 mg PO DAILY [facility] Atorvastatin Calcium (Lipitor) 40 mg PO QPM [facility] Last Admin: 03/27/20 21:14 Dose: 40 mg Documented by: Duloxetine HCl (Cymbalta) 60 mg PO QPM [facility] Last Admin: 03/27/20 21:14 Dose: 60 mg Documented by: Fenofibrate (Tricor) 144 mg PO DAILY [facility] Last Admin: 03/28/20 09:14 Dose: 144 mg Documented by: Ferrous Sulfate (Feosol) 325 mg PO DAILYWM [facility] Last Admin: 03/28/20 07:48 Dose: 325 mg Documented by: Gabapentin (Neurontin) 300 mg PO QPM [facility] Last Admin: 03/27/20 21:14 Dose: 300 mg Documented by: Heparin Sodium (Porcine) () 5,000 unit SUBQ BID [facility] Last Admin: 03/28/20 09:13 Dose: 5,000 unit Documented by: Lactated Ringer's (Lr) 1,000 mls @ 100 mls/hr IV .Q10H [facility] Last Admin: 03/28/20 12:02 Dose: 100 mls/hr Documented by: Insulin Aspart (Novolog) 1 - 9 unit SUBQ 0800,1200,1700,2100 [facility]; Protocol Last Admin: 03/28/20 11:59 Dose: 1 unit Documented by: Insulin Aspart (Novolog) 5 unit SUBQ TIDWM [facility] Last Admin: 03/28/20 12:00 Dose: 5 unit Documented by: Insulin Glargine (Lantus Solostar) 10 unit SUBQ QPM [facility] Last Admin: 03/27/20 21:17 Dose: 10 unit Documented by: Ondansetron HCl (Zofran Inj) 4 mg IVP Q6HR PRN PRN Reason: Nausea / Vomiting Sodium Chloride (Normal Saline Flush 0.9%) 10 ml IVP PRN PRN PRN Reason: NEEDED PER PROVIDER ORDERS Sodium Chloride (Normal Saline Flush 0.9%) 10 ml IVP 0100,0900,1700 [facility] Last Admin: 03/28/20 07:47 Dose: 10 ml Documented by: Tamsulosin HCl (Flomax) 0.4 mg PO DAILY [facility] Last Admin: 03/28/20 09:14 Dose: 0.4 mg Documented by: Aspirin [Aspirin EC] 81 mg PO DAILY 03/25/20 Furosemide [Lasix] 40 mg PO BIDDIURETIC 03/25/20 Insulin Lispro [Humalog] 20 - 30 units SUBQ BIDWM 03/25/20 carvediloL [Coreg] 6.25 mg PO BID 03/25/20 ARIPiprazole [Abilify] 5 mg PO QPM 03/26/20 Atorvastatin Calcium 40 mg PO QPM 03/26/20 Duloxetine HCl [Cymbalta] 60 mg PO QPM 03/26/20 Fenofibrate,Micronized [Fenofibrate] 134 mg PO DAILY 03/26/20 Tamsulosin HCl [Flomax] 0.4 mg PO DAILY 03/26/20 amLODIPine [Norvasc] 5 mg PO DAILY 03/26/20 hydrALAZINE [Apresoline] 25 mg PO TID 03/26/20 - PHYSICAL EXAM AT DISCHARGE General Appearance: positive: No acute distress, Alert Eyes Bilateral: positive: Normal inspection, Other (Left eye anopia) ENT: positive: ENT inspection nml, Other (Nasal cannula in place.) Neck: positive: Nml inspection Respiratory: positive: No respiratory distress, Rales. negative: Wheezes, Rhonchi Cardiovascular: positive: Regular rate & rhythm. negative: Tachycardia, Systolic murmur Abdomen: positive: Non-tender, No distention. negative: Tenderness Skin: positive: Warm, Dry Extremities: positive: Pedal edema (Trace edema in bilateral lower extremities.) Neurologic/Psychiatric: positive: Motor nml. negative: Disoriented to person, Disoriented to place Physical Exam Other/Comments: Vital Signs - 24 hr 03/27/20 03/27/20 03/28/20 20:33 23:39 05:00 Temperature 36.4 C L 36.7 C 36.7 C Heart Rate [ 49 L 52 L 56 L Brachial] Respiratory 18 18 18 Rate Blood Pressure 107/58 L 122/62 127/55 L [Right Brachial artery] O2 Saturation 99 97 96 03/28/20 03/28/20 03/28/20 09:00 13:00 15:56 Temperature 36.4 C L 36.6 C 36.3 C L Heart Rate [ 54 L 53 L 54 L Brachial] Respiratory 18 20 16 Rate Blood Pressure 113/56 L 129/56 L 130/63 [Right Brachial artery] O2 Saturation 98 98 100 Oxygen O2 Source Nasal cannula Oxygen Flow Rate 3 - LABS Result Diagrams: 03/28/20 05:26 03/28/20 14:52 Other Lab Results: Laboratory Tests 03/25/20 03/25/20 03/25/20 14:08 14:08 14:08 WBC 6.8 RBC 3.03 L Hgb 8.9 L Hct 28.4 L MCV 93.7 MCH 29.4 MCHC 31.3 L RDW 14.5 Plt Count 162 MPV 11.1 Reticulocyte % (Auto) Neut # (Auto) 5.1 Lymph # (Auto) 0.8 L Citrus # (Auto) 0.7 Eos # (Auto) 0.1 Baso # (Auto) 0.0 Absolute Nucleated RBC 0.00 Nucleated RBC % 0.0 Absolute Retic Sodium 134 L Potassium 4.7 Chloride 106 Carbon Dioxide 19 L Anion Gap 9.0 BUN 73 H Creatinine 3.0 H Estimated GFR (MDRD) 21 L Glucose 163 H POC Whole Bld Glucose Estimat Average Glucose Hemoglobin A1c % Calcium 8.3 L Phosphorus Magnesium Iron TIBC % Saturation Transferrin Ferritin Total Bilirubin 0.7 AST 30 ALT 18 Alkaline Phosphatase 60 Lactate Dehydrogenase Troponin I High Sens B-Natriuretic Peptide 2871 H Total Protein 8.1 Albumin 3.0 L Globulin 5.1 H Albumin/Globulin Ratio 0.6 L Lipase 52 H Vitamin B12 Urine Color Urine Clarity Urine pH Ur Specific [place] Urine Protein Urine Glucose (UA) Urine Ketones Urine Occult Blood Urine Nitrite Urine Bilirubin Urine Urobilinogen Ur Leukocyte Esterase Urine RBC Urine WBC Ur Squamous Epith Cells Urine Bacteria Urine Casts Ur Random Chloride Urine Sodium Nasal Adenovirus (PCR) Nasal B. parapertussis DNA (PCR) Nasal Coronavir 229E PCR Nasal Coronavir HKU1 PCR Nasal Coronavir NL63 PCR Nasal Coronavir OC43 PCR Nasal Enterovir/Rhinovir PCR Nasal Influenza B PCR Nasal Influenza A PCR Nasal Parainfluen 1 PCR Nasal Parainfluen 2 PCR Nasal Parainfluen 3 PCR Nasal Parainfluen 4 PCR Nasal RSV (PCR) Nasal B.pertussis DNA PCR Nasal C.pneumoniae (PCR) [place] Human Metapneumo PCR Nasal M.pneumoniae (PCR) Nasal SARS-CoV-2 (PCR) Blood Type Blood Type Recheck Antibody Screen Crossmatch IS Only 03/25/20 03/25/20 03/25/20 14:08 15:38 16:22 WBC RBC Hgb Hct MCV MCH MCHC RDW Plt Count MPV Reticulocyte % (Auto) Neut # (Auto) Lymph # (Auto) [place] # (Auto) Eos # (Auto) Baso # (Auto) Absolute Nucleated RBC Nucleated RBC % Absolute Retic Sodium Potassium Chloride Carbon Dioxide Anion Gap BUN Creatinine Estimated GFR (MDRD) Glucose POC Whole Bld Glucose Estimat Average Glucose Hemoglobin A1c % Calcium Phosphorus Magnesium Iron TIBC % Saturation Transferrin Ferritin Total Bilirubin AST ALT Alkaline Phosphatase Lactate Dehydrogenase Troponin I High Sens 100.2 H* 111.5 H* B-Natriuretic Peptide Total Protein Albumin Globulin Albumin/Globulin Ratio Lipase Vitamin B12 Urine Color Urine Clarity Urine pH Ur Specific [place] Urine Protein Urine Glucose (UA) Urine Ketones Urine Occult Blood Urine Nitrite Urine Bilirubin Urine Urobilinogen Ur Leukocyte Esterase Urine RBC Urine WBC Ur Squamous Epith Cells Urine Bacteria Urine Casts Ur Random Chloride Urine Sodium Nasal Adenovirus (PCR) NOT DETECTED Nasal B. parapertussis DNA (PCR) NOT DETECTED Nasal Coronavir 229E PCR NOT DETECTED Nasal Coronavir HKU1 PCR NOT DETECTED Nasal Coronavir NL63 PCR NOT DETECTED Nasal Coronavir OC43 PCR NOT DETECTED Nasal Enterovir/Rhinovir PCR NOT DETECTED Nasal Influenza B PCR NOT DETECTED Nasal Influenza A PCR NOT DETECTED Nasal Parainfluen 1 PCR NOT DETECTED Nasal Parainfluen 2 PCR NOT DETECTED Nasal Parainfluen 3 PCR NOT DETECTED Nasal Parainfluen 4 PCR NOT DETECTED Nasal RSV (PCR) NOT DETECTED Nasal B.pertussis DNA PCR NOT DETECTED Nasal C.pneumoniae (PCR) NOT DETECTED [place] Human Metapneumo PCR NOT DETECTED Nasal M.pneumoniae (PCR) NOT DETECTED Nasal SARS-CoV-2 (PCR) NOT DETECTED Blood Type Blood Type Recheck Antibody Screen Crossmatch IS Only 11/03/25/20 03/25/20 16:22 16:22 16:22 WBC RBC Hgb Hct MCV MCH MCHC RDW Plt Count MPV Reticulocyte % (Auto) Neut # (Auto) Lymph # (Auto) [place] # (Auto) Eos # (Auto) Baso # (Auto) Absolute Nucleated RBC Nucleated RBC % Absolute Retic Sodium Potassium Chloride Carbon Dioxide Anion Gap BUN Creatinine Estimated GFR (MDRD) Glucose POC Whole Bld Glucose Estimat Average Glucose Hemoglobin A1c % Calcium Phosphorus Magnesium Iron 10 L TIBC 316 % Saturation 3 L Transferrin 226 Ferritin 273.4 Total Bilirubin AST ALT Alkaline Phosphatase Lactate Dehydrogenase 263 H Troponin I High Sens B-Natriuretic Peptide Total Protein Albumin Globulin Albumin/Globulin Ratio Lipase Vitamin B12 357 Urine Color Urine Clarity Urine pH Ur Specific [place] Urine Protein Urine Glucose (UA) Urine Ketones Urine Occult Blood Urine Nitrite Urine Bilirubin Urine Urobilinogen Ur Leukocyte Esterase Urine RBC Urine WBC Ur Squamous Epith Cells Urine Bacteria Urine Casts Ur Random Chloride Urine Sodium Nasal Adenovirus (PCR) Nasal B. parapertussis DNA (PCR) Nasal Coronavir 229E PCR Nasal Coronavir HKU1 PCR Nasal Coronavir NL63 PCR Nasal Coronavir OC43 PCR Nasal Enterovir/Rhinovir PCR Nasal Influenza B PCR Nasal Influenza A PCR Nasal Parainfluen 1 PCR Nasal Parainfluen 2 PCR Nasal Parainfluen 3 PCR Nasal Parainfluen 4 PCR Nasal RSV (PCR) Nasal B.pertussis DNA PCR Nasal C.pneumoniae (PCR) [place] Human Metapneumo PCR Nasal M.pneumoniae (PCR) Nasal SARS-CoV-2 (PCR) Blood Type Blood Type Recheck Antibody Screen Crossmatch IS Only 03/25/20 03/25/20 03/25/20 18:07 20:56 22:26 WBC RBC Hgb Hct MCV MCH MCHC RDW Plt Count MPV Reticulocyte % (Auto) Neut # (Auto) Lymph # (Auto) [place] # (Auto) Eos # (Auto) Baso # (Auto) Absolute Nucleated RBC Nucleated RBC % Absolute Retic Sodium Potassium Chloride Carbon Dioxide Anion Gap BUN Creatinine Estimated GFR (MDRD) Glucose POC Whole Bld Glucose 120 H 172 H Estimat Average Glucose Hemoglobin A1c % Calcium Phosphorus Magnesium Iron TIBC % Saturation Transferrin Ferritin Total Bilirubin AST ALT Alkaline Phosphatase Lactate Dehydrogenase Troponin I High Sens 105.1 H* B-Natriuretic Peptide Total Protein Albumin Globulin Albumin/Globulin Ratio Lipase Vitamin B12 Urine Color Urine Clarity Urine pH Ur Specific [place] Urine Protein Urine Glucose (UA) Urine Ketones Urine Occult Blood Urine Nitrite Urine Bilirubin Urine Urobilinogen Ur Leukocyte Esterase Urine RBC Urine WBC Ur Squamous Epith Cells Urine Bacteria Urine Casts Ur Random Chloride Urine Sodium Nasal Adenovirus (PCR) Nasal B. parapertussis DNA (PCR) Nasal Coronavir 229E PCR Nasal Coronavir HKU1 PCR Nasal Coronavir NL63 PCR Nasal Coronavir OC43 PCR Nasal Enterovir/Rhinovir PCR Nasal Influenza B PCR Nasal Influenza A PCR Nasal Parainfluen 1 PCR Nasal Parainfluen 2 PCR Nasal Parainfluen 3 PCR Nasal Parainfluen 4 PCR Nasal RSV (PCR) Nasal B.pertussis DNA PCR Nasal C.pneumoniae (PCR) [place] Human Metapneumo PCR Nasal M.pneumoniae (PCR) Nasal SARS-CoV-2 (PCR) Blood Type Blood Type Recheck Antibody Screen Crossmatch IS Only 03/25/20 03/26/20 03/26/20 22:26 05:16 05:16 WBC 5.7 RBC 2.79 L 2.67 L Hgb 7.7 L Hct 25.3 L MCV 94.8 H MCH 28.8 MCHC 30.4 L RDW 14.6 Plt Count 142 MPV 10.8 Reticulocyte % (Auto) 1.64 Neut # (Auto) 3.5 Lymph # (Auto) 1.2 L [place] # (Auto) 0.5 Eos # (Auto) 0.4 Baso # (Auto) 0.0 Absolute Nucleated RBC 0.00 Nucleated RBC % 0.0 Absolute Retic 0.046 Sodium 134 L Potassium 4.5 Chloride 104 Carbon Dioxide 20 L Anion Gap 10.0 BUN 70 H Creatinine 3.1 H Estimated GFR (MDRD) 20 L Glucose 117 H POC Whole Bld Glucose Estimat Average Glucose Hemoglobin A1c % Calcium 8.2 L Phosphorus 4.2 Magnesium 1.5 L Iron TIBC % Saturation Transferrin Ferritin Total Bilirubin AST ALT Alkaline Phosphatase Lactate Dehydrogenase Troponin I High Sens B-Natriuretic Peptide Total Protein Albumin Globulin Albumin/Globulin Ratio Lipase Vitamin B12 Urine Color Urine Clarity Urine pH Ur Specific [place] Urine Protein Urine Glucose (UA) Urine Ketones Urine Occult Blood Urine Nitrite Urine Bilirubin Urine Urobilinogen Ur Leukocyte Esterase Urine RBC Urine WBC Ur Squamous Epith Cells Urine Bacteria Urine Casts Ur Random Chloride Urine Sodium Nasal Adenovirus (PCR) Nasal B. parapertussis DNA (PCR) Nasal Coronavir 229E PCR Nasal Coronavir HKU1 PCR Nasal Coronavir NL63 PCR Nasal Coronavir OC43 PCR Nasal Enterovir/Rhinovir PCR Nasal Influenza B PCR Nasal Influenza A PCR Nasal Parainfluen 1 PCR Nasal Parainfluen 2 PCR Nasal Parainfluen 3 PCR Nasal Parainfluen 4 PCR Nasal RSV (PCR) Nasal B.pertussis DNA PCR Nasal C.pneumoniae (PCR) [place] Human Metapneumo PCR Nasal M.pneumoniae (PCR) Nasal SARS-CoV-2 (PCR) Blood Type Blood Type Recheck Antibody Screen Crossmatch IS Only 03/26/20 03/26/20 03/26/20 05:16 05:16 05:16 WBC RBC Hgb Hct MCV MCH MCHC RDW Plt Count MPV Reticulocyte % (Auto) Neut # (Auto) Lymph # (Auto) [place] # (Auto) Eos # (Auto) Baso # (Auto) Absolute Nucleated RBC Nucleated RBC % Absolute Retic Sodium Potassium Chloride Carbon Dioxide Anion Gap BUN Creatinine Estimated GFR (MDRD) Glucose POC Whole Bld Glucose Estimat Average Glucose 194 H Hemoglobin A1c % 8.4 H Calcium Phosphorus Magnesium Iron TIBC % Saturation Transferrin Ferritin Total Bilirubin AST ALT Alkaline Phosphatase Lactate Dehydrogenase Troponin I High Sens B-Natriuretic Peptide 1944 H Total Protein Albumin Globulin Albumin/Globulin Ratio Lipase Vitamin B12 Urine Color Urine Clarity Urine pH Ur Specific [place] Urine Protein Urine Glucose (UA) Urine Ketones Urine Occult Blood Urine Nitrite Urine Bilirubin Urine Urobilinogen Ur Leukocyte Esterase Urine RBC Urine WBC Ur Squamous Epith Cells Urine Bacteria Urine Casts Ur Random Chloride Urine Sodium Nasal Adenovirus (PCR) Nasal B. parapertussis DNA (PCR) Nasal Coronavir 229E PCR Nasal Coronavir HKU1 PCR Nasal Coronavir NL63 PCR Nasal Coronavir OC43 PCR Nasal Enterovir/Rhinovir PCR Nasal Influenza B PCR Nasal Influenza A PCR Nasal Parainfluen 1 PCR Nasal Parainfluen 2 PCR Nasal Parainfluen 3 PCR Nasal Parainfluen 4 PCR Nasal RSV (PCR) Nasal B.pertussis DNA PCR Nasal C.pneumoniae (PCR) [place] Human Metapneumo PCR Nasal M.pneumoniae (PCR) Nasal SARS-CoV-2 (PCR) Blood Type Blood Type Recheck A POSITIVE Antibody Screen Crossmatch IS Only 03/26/20 03/26/20 03/26/20 07:27 07:38 11:45 WBC RBC Hgb Hct MCV MCH MCHC RDW Plt Count MPV Reticulocyte % (Auto) Neut # (Auto) Lymph # (Auto) [place] # (Auto) Eos # (Auto) Baso # (Auto) Absolute Nucleated RBC Nucleated RBC % Absolute Retic Sodium Potassium Chloride Carbon Dioxide Anion Gap BUN Creatinine Estimated GFR (MDRD) Glucose POC Whole Bld Glucose 110 H 194 H Estimat Average Glucose Hemoglobin A1c % Calcium Phosphorus Magnesium Iron TIBC % Saturation Transferrin Ferritin Total Bilirubin AST ALT Alkaline Phosphatase Lactate Dehydrogenase Troponin I High Sens B-Natriuretic Peptide Total Protein Albumin Globulin Albumin/Globulin Ratio Lipase Vitamin B12 Urine Color Urine Clarity Urine pH Ur Specific [place] Urine Protein Urine Glucose (UA) Urine Ketones Urine Occult Blood Urine Nitrite Urine Bilirubin Urine Urobilinogen Ur Leukocyte Esterase Urine RBC Urine WBC Ur Squamous Epith Cells Urine Bacteria Urine Casts Ur Random Chloride Urine Sodium Nasal Adenovirus (PCR) Nasal B. parapertussis DNA (PCR) Nasal Coronavir 229E PCR Nasal Coronavir HKU1 PCR Nasal Coronavir NL63 PCR Nasal Coronavir OC43 PCR Nasal Enterovir/Rhinovir PCR Nasal Influenza B PCR Nasal Influenza A PCR Nasal Parainfluen 1 PCR Nasal Parainfluen 2 PCR Nasal Parainfluen 3 PCR Nasal Parainfluen 4 PCR Nasal RSV (PCR) Nasal B.pertussis DNA PCR Nasal C.pneumoniae (PCR) [place] Human Metapneumo PCR Nasal M.pneumoniae (PCR) Nasal SARS-CoV-2 (PCR) Blood Type A POSITIVE Blood Type Recheck Antibody Screen NEGATIVE Crossmatch IS Only See Detail 03/26/20 03/26/20 03/26/20 15:39 15:39 16:23 WBC 5.9 RBC 2.96 L Hgb 8.7 L Hct 27.6 L MCV 93.2 MCH 29.4 MCHC 31.5 L RDW 15.1 H Plt Count 142 MPV 10.8 Reticulocyte % (Auto) Neut # (Auto) Lymph # (Auto) [place] # (Auto) Eos # (Auto) Baso # (Auto) Absolute Nucleated RBC Nucleated RBC % Absolute Retic Sodium 132 L Potassium 4.7 Chloride 100 L Carbon Dioxide 20 L Anion Gap 12.0 BUN 71 H Creatinine 3.1 H Estimated GFR (MDRD) 20 L Glucose 211 H POC Whole Bld Glucose 185 H Estimat Average Glucose Hemoglobin A1c % Calcium 8.3 L Phosphorus Magnesium Iron TIBC % Saturation Transferrin Ferritin Total Bilirubin AST ALT Alkaline Phosphatase Lactate Dehydrogenase Troponin I High Sens B-Natriuretic Peptide Total Protein Albumin Globulin Albumin/Globulin Ratio Lipase Vitamin B12 Urine Color Urine Clarity Urine pH Ur Specific [place] Urine Protein Urine Glucose (UA) Urine Ketones Urine Occult Blood Urine Nitrite Urine Bilirubin Urine Urobilinogen Ur Leukocyte Esterase Urine RBC Urine WBC Ur Squamous Epith Cells Urine Bacteria Urine Casts Ur Random Chloride Urine Sodium Nasal Adenovirus (PCR) Nasal B. parapertussis DNA (PCR) Nasal Coronavir 229E PCR Nasal Coronavir HKU1 PCR Nasal Coronavir NL63 PCR Nasal Coronavir OC43 PCR Nasal Enterovir/Rhinovir PCR Nasal Influenza B PCR Nasal Influenza A PCR Nasal Parainfluen 1 PCR Nasal Parainfluen 2 PCR Nasal Parainfluen 3 PCR Nasal Parainfluen 4 PCR Nasal RSV (PCR) Nasal B.pertussis DNA PCR Nasal C.pneumoniae (PCR) [place] Human Metapneumo PCR Nasal M.pneumoniae (PCR) Nasal SARS-CoV-2 (PCR) Blood Type Blood Type Recheck Antibody Screen Crossmatch IS Only 03/26/20 03/27/20 03/27/20 20:19 05:30 05:30 WBC 5.7 RBC 2.83 L Hgb 8.1 L Hct 26.5 L MCV 93.6 MCH 28.6 MCHC 30.6 L RDW 15.4 H Plt Count 145 MPV 10.4 Reticulocyte % (Auto) Neut # (Auto) 3.1 Lymph # (Auto) 1.3 L Citrus # (Auto) 0.5 Eos # (Auto) 0.7 Baso # (Auto) 0.0 Absolute Nucleated RBC 0.00 Nucleated RBC % 0.0 Absolute Retic Sodium 135 Potassium 4.5 Chloride 104 Carbon Dioxide 20 L Anion Gap 11.0 BUN 78 H Creatinine 3.6 H Estimated GFR (MDRD) 17 L Glucose 130 H POC Whole Bld Glucose 189 H Estimat Average Glucose Hemoglobin A1c % Calcium 8.4 L Phosphorus Magnesium Iron TIBC % Saturation Transferrin Ferritin Total Bilirubin AST ALT Alkaline Phosphatase Lactate Dehydrogenase Troponin I High Sens B-Natriuretic Peptide Total Protein Albumin Globulin Albumin/Globulin Ratio Lipase Vitamin B12 Urine Color Urine Clarity Urine pH Ur Specific [place] Urine Protein Urine Glucose (UA) Urine Ketones Urine Occult Blood Urine Nitrite Urine Bilirubin Urine Urobilinogen Ur Leukocyte Esterase Urine RBC Urine WBC Ur Squamous Epith Cells Urine Bacteria Urine Casts Ur Random Chloride Urine Sodium Nasal Adenovirus (PCR) Nasal B. parapertussis DNA (PCR) Nasal Coronavir 229E PCR Nasal Coronavir HKU1 PCR Nasal Coronavir NL63 PCR Nasal Coronavir OC43 PCR Nasal Enterovir/Rhinovir PCR Nasal Influenza B PCR Nasal Influenza A PCR Nasal Parainfluen 1 PCR Nasal Parainfluen 2 PCR Nasal Parainfluen 3 PCR Nasal Parainfluen 4 PCR Nasal RSV (PCR) Nasal B.pertussis DNA PCR Nasal C.pneumoniae (PCR) [place] Human Metapneumo PCR Nasal M.pneumoniae (PCR) Nasal SARS-CoV-2 (PCR) Blood Type Blood Type Recheck Antibody Screen Crossmatch IS Only 03/27/20 03/27/20 03/27/20 05:30 07:40 09:30 WBC RBC Hgb Hct MCV MCH MCHC RDW Plt Count MPV Reticulocyte % (Auto) Neut # (Auto) Lymph # (Auto) [place] # (Auto) Eos # (Auto) Baso # (Auto) Absolute Nucleated RBC Nucleated RBC % Absolute Retic Sodium Potassium Chloride Carbon Dioxide Anion Gap BUN Creatinine Estimated GFR (MDRD) Glucose POC Whole Bld Glucose 100 Estimat Average Glucose Hemoglobin A1c % Calcium Phosphorus Magnesium Iron TIBC % Saturation Transferrin Ferritin Total Bilirubin AST ALT Alkaline Phosphatase Lactate Dehydrogenase Troponin I High Sens B-Natriuretic Peptide 1126 H Total Protein Albumin Globulin Albumin/Globulin Ratio Lipase Vitamin B12 Urine Color YELLOW Urine Clarity CLEAR Urine pH 5.0 Ur Specific [place] >=1.030 H Urine Protein 100 H Urine Glucose (UA) NEGATIVE Urine Ketones NEGATIVE Urine Occult Blood NEGATIVE Urine Nitrite NEGATIVE Urine Bilirubin NEGATIVE Urine Urobilinogen 0.2 (NORMAL) Ur Leukocyte Esterase NEGATIVE Urine RBC 0-5 Urine WBC 0-3 Ur Squamous Epith Cells FEW Squamous Urine Bacteria None Seen Urine Casts 0-2 Hyaline Casts Ur Random Chloride Urine Sodium Nasal Adenovirus (PCR) Nasal B. parapertussis DNA (PCR) Nasal Coronavir 229E PCR Nasal Coronavir HKU1 PCR Nasal Coronavir NL63 PCR Nasal Coronavir OC43 PCR Nasal Enterovir/Rhinovir PCR Nasal Influenza B PCR Nasal Influenza A PCR Nasal Parainfluen 1 PCR Nasal Parainfluen 2 PCR Nasal Parainfluen 3 PCR Nasal Parainfluen 4 PCR Nasal RSV (PCR) Nasal B.pertussis DNA PCR Nasal C.pneumoniae (PCR) [place] Human Metapneumo PCR Nasal M.pneumoniae (PCR) Nasal SARS-CoV-2 (PCR) Blood Type Blood Type Recheck Antibody Screen Crossmatch IS Only 03/27/20 03/27/20 03/27/20 09:30 11:02 11:47 WBC RBC Hgb Hct MCV MCH MCHC RDW Plt Count MPV Reticulocyte % (Auto) Neut # (Auto) Lymph # (Auto) [place] # (Auto) Eos # (Auto) Baso # (Auto) Absolute Nucleated RBC Nucleated RBC % Absolute Retic Sodium 137 Potassium 4.5 Chloride 101 Carbon Dioxide 21 Anion Gap 15.0 H BUN 77 H Creatinine 3.6 H Estimated GFR (MDRD) 17 L Glucose 210 H POC Whole Bld Glucose 230 H Estimat Average Glucose Hemoglobin A1c % Calcium 8.4 L Phosphorus Magnesium Iron TIBC % Saturation Transferrin Ferritin Total Bilirubin AST ALT Alkaline Phosphatase Lactate Dehydrogenase Troponin I High Sens B-Natriuretic Peptide Total Protein Albumin Globulin Albumin/Globulin Ratio Lipase Vitamin B12 Urine Color Urine Clarity Urine pH Ur Specific [place] Urine Protein Urine Glucose (UA) Urine Ketones Urine Occult Blood Urine Nitrite Urine Bilirubin Urine Urobilinogen Ur Leukocyte Esterase Urine RBC Urine WBC Ur Squamous Epith Cells Urine Bacteria Urine Casts Ur Random Chloride 14 Urine Sodium 27.0 Nasal Adenovirus (PCR) Nasal B. parapertussis DNA (PCR) Nasal Coronavir 229E PCR Nasal Coronavir HKU1 PCR Nasal Coronavir NL63 PCR Nasal Coronavir OC43 PCR Nasal Enterovir/Rhinovir PCR Nasal Influenza B PCR Nasal Influenza A PCR Nasal Parainfluen 1 PCR Nasal Parainfluen 2 PCR Nasal Parainfluen 3 PCR Nasal Parainfluen 4 PCR Nasal RSV (PCR) Nasal B.pertussis DNA PCR Nasal C.pneumoniae (PCR) [place] Human Metapneumo PCR Nasal M.pneumoniae (PCR) Nasal SARS-CoV-2 (PCR) Blood Type Blood Type Recheck Antibody Screen Crossmatch IS Only 03/27/20 03/28/20 03/28/20 20:29 05:26 05:26 WBC 4.8 RBC 2.92 L Hgb 8.4 L Hct 27.7 L MCV 94.9 H MCH 28.8 MCHC 30.3 L RDW 15.3 H Plt Count 164 MPV 11.3 Reticulocyte % (Auto) Neut # (Auto) 2.5 Lymph # (Auto) 1.0 L [place] # (Auto) 0.5 Eos # (Auto) 0.7 Baso # (Auto) 0.0 Absolute Nucleated RBC 0.00 Nucleated RBC % 0.0 Absolute Retic Sodium 133 L Potassium 5.1 H Chloride 103 Carbon Dioxide 20 L Anion Gap 10.0 BUN 93 H* Creatinine 4.5 H Estimated GFR (MDRD) 13 L Glucose 147 H POC Whole Bld Glucose 225 H Estimat Average Glucose Hemoglobin A1c % Calcium 8.2 L Phosphorus Magnesium Iron TIBC % Saturation Transferrin Ferritin Total Bilirubin AST ALT Alkaline Phosphatase Lactate Dehydrogenase Troponin I High Sens B-Natriuretic Peptide Total Protein Albumin Globulin Albumin/Globulin Ratio Lipase Vitamin B12 Urine Color Urine Clarity Urine pH Ur Specific [place] Urine Protein Urine Glucose (UA) Urine Ketones Urine Occult Blood Urine Nitrite Urine Bilirubin Urine Urobilinogen Ur Leukocyte Esterase Urine RBC Urine WBC Ur Squamous Epith Cells Urine Bacteria Urine Casts Ur Random Chloride Urine Sodium Nasal Adenovirus (PCR) Nasal B. parapertussis DNA (PCR) Nasal Coronavir 229E PCR Nasal Coronavir HKU1 PCR Nasal Coronavir NL63 PCR Nasal Coronavir OC43 PCR Nasal Enterovir/Rhinovir PCR Nasal Influenza B PCR Nasal Influenza A PCR Nasal Parainfluen 1 PCR Nasal Parainfluen 2 PCR Nasal Parainfluen 3 PCR Nasal Parainfluen 4 PCR Nasal RSV (PCR) Nasal B.pertussis DNA PCR Nasal C.pneumoniae (PCR) [place] Human Metapneumo PCR Nasal M.pneumoniae (PCR) Nasal SARS-CoV-2 (PCR) Blood Type Blood Type Recheck Antibody Screen Crossmatch IS Only 03/28/20 03/28/20 03/28/20 05:26 07:37 11:44 WBC RBC Hgb Hct MCV MCH MCHC RDW Plt Count MPV Reticulocyte % (Auto) Neut # (Auto) Lymph # (Auto) [place] # (Auto) Eos # (Auto) Baso # (Auto) Absolute Nucleated RBC Nucleated RBC % Absolute Retic Sodium Potassium Chloride Carbon Dioxide Anion Gap BUN Creatinine Estimated GFR (MDRD) Glucose POC Whole Bld Glucose 136 H 150 H Estimat Average Glucose Hemoglobin A1c % Calcium Phosphorus Magnesium Iron TIBC % Saturation Transferrin Ferritin Total Bilirubin AST ALT Alkaline Phosphatase Lactate Dehydrogenase Troponin I High Sens B-Natriuretic Peptide 655 H Total Protein Albumin Globulin Albumin/Globulin Ratio Lipase Vitamin B12 Urine Color Urine Clarity Urine pH Ur Specific [place] Urine Protein Urine Glucose (UA) Urine Ketones Urine Occult Blood Urine Nitrite Urine Bilirubin Urine Urobilinogen Ur Leukocyte Esterase Urine RBC Urine WBC Ur Squamous Epith Cells Urine Bacteria Urine Casts Ur Random Chloride Urine Sodium Nasal Adenovirus (PCR) Nasal B. parapertussis DNA (PCR) Nasal Coronavir 229E PCR Nasal Coronavir HKU1 PCR Nasal Coronavir NL63 PCR Nasal Coronavir OC43 PCR Nasal Enterovir/Rhinovir PCR Nasal Influenza B PCR Nasal Influenza A PCR Nasal Parainfluen 1 PCR Nasal Parainfluen 2 PCR Nasal Parainfluen 3 PCR Nasal Parainfluen 4 PCR Nasal RSV (PCR) Nasal B.pertussis DNA PCR Nasal C.pneumoniae (PCR) [place] Human Metapneumo PCR Nasal M.pneumoniae (PCR) Nasal SARS-CoV-2 (PCR) Blood Type Blood Type Recheck Antibody Screen Crossmatch IS Only 03/28/20 14:52 WBC RBC Hgb Hct MCV MCH MCHC RDW Plt Count MPV Reticulocyte % (Auto) Neut # (Auto) Lymph # (Auto) [place] # (Auto) Eos # (Auto) Baso # (Auto) Absolute Nucleated RBC Nucleated RBC % Absolute Retic Sodium 131 L Potassium 5.4 H Chloride 102 Carbon Dioxide 21 Anion Gap 8.0 BUN 97 H* Creatinine 4.5 H Estimated GFR (MDRD) 13 L Glucose 152 H POC Whole Bld Glucose Estimat Average Glucose Hemoglobin A1c % Calcium 8.1 L Phosphorus Magnesium Iron TIBC % Saturation Transferrin Ferritin Total Bilirubin AST ALT Alkaline Phosphatase Lactate Dehydrogenase Troponin I High Sens B-Natriuretic Peptide Total Protein Albumin Globulin Albumin/Globulin Ratio Lipase Vitamin B12 Urine Color Urine Clarity Urine pH Ur Specific [place] Urine Protein Urine Glucose (UA) Urine Ketones Urine Occult Blood Urine Nitrite Urine Bilirubin Urine Urobilinogen Ur Leukocyte Esterase Urine RBC Urine WBC Ur Squamous Epith Cells Urine Bacteria Urine Casts Ur Random Chloride Urine Sodium Nasal Adenovirus (PCR) Nasal B. parapertussis DNA (PCR) Nasal Coronavir 229E PCR Nasal Coronavir HKU1 PCR Nasal Coronavir NL63 PCR Nasal Coronavir OC43 PCR Nasal Enterovir/Rhinovir PCR Nasal Influenza B PCR Nasal Influenza A PCR Nasal Parainfluen 1 PCR Nasal Parainfluen 2 PCR Nasal Parainfluen 3 PCR Nasal Parainfluen 4 PCR Nasal RSV (PCR) Nasal B.pertussis DNA PCR Nasal C.pneumoniae (PCR) [place] Human Metapneumo PCR Nasal M.pneumoniae (PCR) Nasal SARS-CoV-2 (PCR) Blood Type Blood Type Recheck Antibody Screen Crossmatch IS Only - SEPS[facility] Current Stage of Sepsis: Ruled out - TIME SPENT Time Spent in Discharge (Minutes): 47"
[2020-03-28 18:12] VITALS: BP 118/52
[2020-03-29] MEDS ORDERED: ASPIRIN CHEW 81 MG TABLET PO SCH (09:00)
== END 2020-03-28 18:45 | disposition short-term general hospital (02) | DRG 291 ==
LOC: ED 13:06 → MS2 16:57
PROVIDERS: ADMIT Nurse Practitioner Gerontology; ATTEND Internal Medicine
PROC: 30233N1 Transfusion of Nonautologous Red Blood Cells into Peripheral Vein, Percutaneous Approach (ICD-10-PCS; principal; 2020-03-26)
DX: I13.0 Hypertensive heart and chronic kidney disease with heart failure and stage 1 through stage 4 chronic kidney disease, or unspecified chronic kidney disease (principal); N17.0 Acute kidney failure with tubular necrosis; J96.11 Chronic respiratory failure with hypoxia; I50.9 Heart failure, unspecified; N18.9 Chronic kidney disease, unspecified; I25.10 Atherosclerotic heart disease of native coronary artery without angina pectoris; E11.22 Type 2 diabetes mellitus with diabetic chronic kidney disease; E87.5 Hyperkalemia; D63.1 Anemia in chronic kidney disease; D50.9 Iron deficiency anemia, unspecified; I49.5 Sick sinus syndrome; R09.02 Hypoxemia; Z99.81 Dependence on supplemental oxygen; Z79.82 Long term (current) use of aspirin; Z79.4 Long term (current) use of insulin; Z79.899 Other long term (current) drug therapy; Z95.1 Presence of aortocoronary bypass graft; N17.9 Acute kidney failure, unspecified; D64.9 Anemia, unspecified; Z20.828 Contact with and (suspected) exposure to other viral communicable diseases
CPT/HCPCS: 36415; 71045; 76770; 80048; 80053; 81001; 82272; 82436; 82607; 82728; 83036; 83540; 83615; 83690; 83735; 83880; 84100; 84300; 84466; 84484; 85025; 85027; 85045; 86850; 86900; 86901; 86920; 87631; 93005; 93306; 96374; 99284; 99285; A9270; J1815; J7120; P9016; 0202U

== ENCOUNTER 2020-03-28 18:47 | Outpatient (CLI) | payer MEDICARE, MEDICAID | END 2020-03-28 18:48 | disposition short-term general hospital (02) | LOC: EMS 18:47 | PROVIDERS: ATTEND Surgery | DX: I50.9 Heart failure, unspecified (principal); N17.9 Acute kidney failure, unspecified; N18.9 Chronic kidney disease, unspecified | CPT/HCPCS: A0425; A0426 ==